=== PATIENT | male | born 1935 | race Caucasian/White ===

== ENCOUNTER 2017-05-23 09:02 | Emergency (ER) | payer MEDICARE ==
[2017-05-23 09:14] VITALS: BP 151/49
[2017-05-23 09:32] LABS: Urine Bilirubin 1 mg/dl (NEGATIVE); Urine Blood 250 /ul (NEGATIVE); Urine Ketone 15 mg/dL (NEGATIVE); Urine Protein 100 mg/dL (NEGATIVE); Urine Specific Gravity >=1.030 SP.GR. (1.005-1.030); Urine Urobilinogen Normal (NORMAL); Urine pH 5.5 pH (5.0-7.0)
[2017-05-23 09:34] LABS: Urine Appearance Slightly Cloudy; Urine Color Yellow; Urine Nitrite Positive (NEGATIVE)
[2017-05-23 09:52] LABS: Hematocrit 36.4 % (42.0-52.0); Hemoglobin 12.1 gm/dL (13.5-18.0); Mean Cell Volume 90.3 fl (78-100); Mean Corpuscular Hgb Conc 33.2 g/dl (32-36); Mean Platelet Volume 10.4 fl (6.0-9.5); Neutrophil # 6.7 K/mm3 (1.3-6.0); Neutrophil % 72.9 % (42-75.0); Platelet Count 149 K/mm3 (150-450); Red Blood Count 4.03 M/mm3 (4.7-6.0); Red Cell Distribution Width 12.4 % (11.5-14.0); White Blood Count 9.2 K/mm3 (4.0-10.5)
[2017-05-23 10:08] LABS: Albumin * 3.6 gm/dl (3.4-5.0); Anion Gap 15.7 mmol/L (6.8-13.8); BUN/Creatinine Ratio 17.4 (9.0-21.6); Bilirubin, Total 0.8 mg/dL (0.0-1.1); Ca. Corrected For Albumin 8.6 mg/dL (8.4-10.2); Calcium * 8.6 mg/dL (7.9-10.9); Carbon Dioxide 25.8 mmol/L (24-32.6); Potassium 4.5 mmol/L (3.4-4.6); Total Protein 6.8 gm/dL (6.2-8.2)
--- NOTE | 2017-05-23 10:17 | ERNOTE ---
ER Male HPI Stated Complaint: UTI Source: patient Exam Limitations: no limitations Immunizations: IMMUNIZATION HX Immunizations Up to Date Yes History of Influenza Vaccine Yes Hx Pneumococcal Vaccination Yes Allergies/Adverse Reactions: Allergies No Known Allergies Allergy (Verified 05/23/17 09:13) Home Medications: HOME MEDICATIONS Aspirin [Aspirin EC] 81 mg PO DAILY 09/30/15 [Last Taken Unknown] Carbidopa/Levodopa [Carbidopa-Levo 25-100 mg Odt] 2 tab PO QID 09/30/15 [Last Taken Unknown] Levothyroxine Sodium [Synthroid] 50 mcg PO DAILY 09/30/15 [Last Taken Unknown] Lisinopril [Zestril] 20 mg PO DAILY 09/30/15 [Last Taken Unknown] Oxybutynin Chloride [Ditropan Xl] 5 mg PO TID PRN 09/30/15 [Last Taken Unknown] Simvastatin [Zocor] 40 mg PO HS 09/30/15 [Last Taken Unknown] Ubidecarenone [Coq10] 100 mg PO DAILY 09/30/15 [Last Taken Unknown] glipiZIDE [Glipizide] 20 mg PO BIDWM 09/30/15 [Last Taken Unknown] metFORMIN HCL [Glucophage] 1,500 mg PO DAILY 09/30/15 [Last Taken Unknown] Centrum Silver Tablet 04/18/17 [Last Taken Unknown] Docusate Sodium 100 mg PO BID 04/18/17 [Last Taken Unknown] Latanoprost 04/18/17 [Last Taken Unknown] Omeprazole [Prilosec] 20 mg PO DAILY 04/18/17 [Last Taken Unknown] Sertraline HCl 25 mg PO DAILY 04/18/17 [Last Taken Unknown] Acetaminophen [Tylenol] 650 mg PO Q6H PRN #60 tablet 04/22/17 [Last Taken Unknown] Beta-Carotene(A) W-C , E/Min [Ocuvite] 1 tab PO DAILY #30 tablet 04/22/17 [Last Taken Unknown] Ciprofloxacin HCl [Cipro] 500 mg PO BID #20 tab 04/22/17 [Last Taken Unknown] Metoprolol Tartrate [Lopressor] 25 mg PO BID #30 tablet 04/22/17 [Last Taken Unknown] rOPINIRole HCL [Requip] 0.25 mg PO DAILY #30 tablet 04/22/17 [Last Taken Unknown ] Cephalexin [Keflex] 500 mg PO QID #28 capsule 05/23/17 [Last Taken Unknown] - History of Present Illness Narrative: This is an 81-year-old male with an indwelling suprapubic catheter who has been acting slightly confused. Patient is a resident of [facility] he is brought in by his daughter and the daughter states "this is how he acts when he gets a urinary tract infection" daughter denies any fevers or chills patient denies any abdominal pain or dysuria. Review of Systems - Review of Systems Constitutional: Present: no symptoms reported EYE: Present: no symptoms reported ENT: Present: no symptoms reported Respiratory: Present: no symptoms reported Cardiology: Present: no symptoms reported Gastrointestinal/Abdominal: Present: no symptoms reported Psych: Present: other - slight confusion which has manifested only today. - Patient's Past Medical History Patient History - Medical: Diabetes Type 2, Depression, Hypothyroidism, Other Patient History - Cardiac/Respiratory: Atrial Fibrillation, Coronary Heart Disease, Hypertension, Hyperlipidemia Patient History - Cancer: No Hx of Cancer Patient History - Surgical Procedures: Cataracts, Colonoscopy, Other Patient History - Other: None - Family History Mother Family History - Medical: , Other Family History - Cardiac/Respiratory: No pertinent hx Family History - Cancer: No pertinent family hx Father Family History - Medical: , No pertinent hx - Social History Living Situations: home Abuse History: No History of abuse Psych History: No pertinent hx Does anyone smoke in the home?: No Smoking Status: Never smoker Alcohol Use: none Drug Use: none - Immunizations Immunizations Up to Date: Yes Hx Pneumococcal Vaccination: Yes History of Influenza Vaccine: Yes Physical Exam - Physical Exam General Appearance: Present: wd/wn, alert, no apparent distress Head Exam: Present: normal inspection, no evidence of injury Eye Exam: Normal inspection: bilateral, PERRL: bilateral, EOMI: bilateral Neck: Present: normal inspection Respiratory: Present: no respiratory distress, normal breath sounds, no accessory muscle use, chest nontender, lungs clear Cardiovascular/Chest: Present: regular rate, rhythm, no murmur, normal peripheral pulses Gastrointestinal/Abdominal: Present: normal bowel sounds ED Progress - Results and Orders Patient's Lab Results:: I have reviewed the patient's lab results. - Vital Signs Patient's Vital Signs:: I have reviewed the patient's vital signs. Vital Signs: Vital Signs 08/07/17 09:05 Temperature 36.9 C Pulse Rate 60 Respiratory 15 Rate Blood Pressure 151/49 O2 Sat by Pulse 98 Oximetry - Progress/Reassessment Chief Complaint: Urinary Tract Problems Plan - Plan Plan: Patient's white count is not elevated, he is afebrile at this time, his urine has nitrites and this patient has a urinary tract infection for which she will receive cephalexin. Departure Clinical Impression: Urinary tract infection Qualifiers: Urinary tract infection type: site unspecified Hematuria presence: with hematuria Qualified Code(s): N39.0 - Urinary tract infection, site not specified ; R31.9 - Hematuria, unspecified - Departure Disposition: Home self-care Condition: Good Instructions: Urinary Tract Infection, Adult, [id number] Referrals: Delaney Robledo MD [Primary Care Provider] - Prescriptions: Cephalexin [Keflex] 500 mg PO QID #28 capsule
== END 2017-05-23 10:33 | disposition home or self-care (01) ==
LOC: ER 09:02
DX: N39.0 Urinary tract infection, site not specified (principal); R31.9 Hematuria, unspecified

== ENCOUNTER 2017-06-09 17:46 | Observation (INO) | payer MEDICARE ==
[2017-06-09] MEDS ORDERED: ACETAMINOPHEN 325 MG TABLET ONE (18:56)
[2017-06-09 18:58] LABS: Urine Bilirubin Negative (NEGATIVE); Urine Ketone Negative (NEGATIVE); Urine Nitrite Negative (NEGATIVE); Urine Protein Negative (NEGATIVE); Urine Specific Gravity <=1.005 SP.GR. (1.005-1.030); Urine Urobilinogen Normal (NORMAL)
[2017-06-09 19:05] LABS: Hematocrit 34.4 % (42.0-52.0); Hemoglobin 11.7 gm/dL (13.5-18.0); Mean Cell Volume 89.6 fl (78-100); Mean Corpuscular Hemoglobin 30.5 pg (27-31); Mean Platelet Volume 10.1 fl (6.0-9.5); Neutrophil # 5.7 K/mm3 (1.3-6.0); Neutrophil % 60.6 % (42-75.0); Platelet Count 179 K/mm3 (150-450); Red Blood Count 3.84 M/mm3 (4.7-6.0); Red Cell Distribution Width 12.7 % (11.5-14.0); White Blood Count 9.4 K/mm3 (4.0-10.5)
[2017-06-09 19:09] LABS: Urine Appearance Slightly Cloudy; Urine Bacteria 1+; Urine Blood 5 /ul (NEGATIVE); Urine Color Yellow; Urine RBC TRACE /hpf (0-5)
[2017-06-09 19:19] LABS: Albumin * 3.8 gm/dl (3.4-5.0); Anion Gap 17.3 mmol/L (6.8-13.8); BUN/Creatinine Ratio 19.1 (9.0-21.6); Bilirubin, Total 0.4 mg/dL (0.0-1.1); Ca. Corrected For Albumin 8.9 mg/dL (8.4-10.2); Calcium * 9.1 mg/dL (7.9-10.9); Carbon Dioxide 24.8 mmol/L (24-32.6); Potassium 5.1 mmol/L (3.4-4.6); Total Protein 6.9 gm/dL (6.2-8.2)
[2017-06-09] MEDS ORDERED: NORMAL SALINE 1,000 ML IV ONE (19:25)
[2017-06-09] MEDS ORDERED: LEVOFLOXACIN/D5W 500 MG/100 ML BAG IV SCH (19:30)
--- NOTE | 2017-06-09 19:35 | ERNOTE ---
Neuro HPI ER Record Date of Service: 06/09/17 Presenting Symptoms: confusion Time Seen by Provider: 06/09/17 18:40 Source: patient, family Exam Limitations: no limitations Immunizations: IMMUNIZATION HX Immunizations Up to Date Yes History of Influenza Vaccine Yes Hx Pneumococcal Vaccination Yes Allergies/Adverse Reactions: Allergies Allergy/AdvReac Type Severity Reaction Status Date / Time No Known Allergies Allergy Verified 06/09/17 18:25 Home Medications: HOME MEDICATIONS Aspirin [Aspirin EC] 81 mg PO DAILY 09/30/15 [Last Taken Unknown] Carbidopa/Levodopa [Carbidopa-Levo 25-100 mg Odt] 2 tab PO QID 09/30/15 [Last Taken Unknown] Levothyroxine Sodium [Synthroid] 50 mcg PO DAILY 09/30/15 [Last Taken Unknown] Lisinopril [Zestril] 20 mg PO DAILY 09/30/15 [Last Taken Unknown] Oxybutynin Chloride [Ditropan Xl] 5 mg PO TID PRN 09/30/15 [Last Taken Unknown] Simvastatin [Zocor] 40 mg PO HS 09/30/15 [Last Taken Unknown] Ubidecarenone [Coq10] 100 mg PO DAILY 09/30/15 [Last Taken Unknown] glipiZIDE [Glipizide] 20 mg PO BIDWM 09/30/15 [Last Taken Unknown] metFORMIN HCL [Glucophage] 1,500 mg PO DAILY 09/30/15 [Last Taken Unknown] Centrum Silver Tablet 04/18/17 [Last Taken Unknown] Docusate Sodium 100 mg PO BID 04/18/17 [Last Taken Unknown] Latanoprost 04/18/17 [Last Taken Unknown] Omeprazole [Prilosec] 20 mg PO DAILY 04/18/17 [Last Taken Unknown] Sertraline HCl 25 mg PO DAILY 04/18/17 [Last Taken Unknown] Acetaminophen [Tylenol] 650 mg PO Q6H PRN #60 tablet 04/22/17 [Last Taken Unknown] Beta-Carotene(A) W-C , E/Min [Ocuvite] 1 tab PO DAILY #30 tablet 04/22/17 [Last Taken Unknown] Ciprofloxacin HCl [Cipro] 500 mg PO BID #20 tab 04/22/17 [Last Taken Unknown] Metoprolol Tartrate [Lopressor] 25 mg PO BID #30 tablet 04/22/17 [Last Taken Unknown] rOPINIRole HCL [Requip] 0.25 mg PO DAILY #30 tablet 04/22/17 [Last Taken Unknown ] Cephalexin [Keflex] 500 mg PO QID #28 capsule 05/23/17 [Last Taken Unknown] - History of Present Illness Narrative: Patient presents to the ED for confusion. Family brings him in because he was confused and not himself. The last time he had this he had sepsis from UTI. He has indwelling suprapubic. Family noticed dark urine today. no CP or SOB. No cough. he denies abdominal pain. No clear fever. He denies focal weakness. no falls or trauma. having some increased difficulty walking and decreased orals. Onset: gradual onset Severity: mild - Character of Deficits Associated Symptoms: Reports: confused. Denies: fever/chills, chest pain, neck/ back pain, headache, unresponsive Prior Treament: Denies: recently seen Review of Systems - Review of Systems Constitutional: Absent: fever Respiratory: Absent: shortness of breath Cardiology: Absent: chest pain Gastrointestinal/Abdominal: Absent: abdominal pain Genitourinary: Present: See HPI Musculoskeletal: Absent: back pain Skin: Absent: rash Neurological: Present: See HPI All Other Systems: All systems neg except as marked - Patient's Past Medical History Patient History - Medical: Diabetes Type 2, Depression, Hypothyroidism, Other Patient History - Cardiac/Respiratory: Atrial Fibrillation, Coronary Heart Disease, Hypertension, Hyperlipidemia Patient History - Cancer: No Hx of Cancer Patient History - Surgical Procedures: Cataracts, Colonoscopy, Other Patient History - Other: None - Family History Mother Family History - Medical: , Other Family History - Cardiac/Respiratory: No pertinent hx Family History - Cancer: No pertinent family hx Father Family History - Medical: , No pertinent hx - Social History Living Situations: assisted living Abuse History: No History of abuse Psych History: No pertinent hx Does anyone smoke in the home?: No Smoking Status: Former smoker Have you smoked in the past 12 months: No Do you dip or chew tobacco: No Alcohol Use: none Drug Use: none - Immunizations Immunizations Up to Date: Yes Hx Pneumococcal Vaccination: Yes History of Influenza Vaccine: Yes Physical Exam - Physical Exam General Appearance: Present: alert, no apparent distress Head Exam: Present: normal inspection, no evidence of injury Eye Exam: Normal inspection: bilateral, PERRL: bilateral Ears, Nose, Throat: Present: normal pharynx, other - decreased MM moisture Neck: Present: normal inspection Respiratory: Present: no respiratory distress, no accessory muscle use, lungs clear Cardiovascular/Chest: Present: regular rate, rhythm, normal peripheral pulses Gastrointestinal/Abdominal: Present: normal bowel sounds, nontender, soft, other - no infection noted at suprapubic site Back Exam: Absent: CVA tenderness (R), CVA tenderness (L) Extremity Exam: Present: normal inspection, no edema Neurological Exam: Present: alert, no motor/sensory deficits Skin Exam: Present: normal color, warm/dry ED Progress - Results and Orders Patient's Lab Results:: I have reviewed the patient's lab results. - Vital Signs Patient's Vital Signs:: I have reviewed the patient's vital signs. Vital Signs: Vital Signs 06/09/17 18:18 Temperature 37.1 C Pulse Rate 56 L Respiratory 15 Rate Blood Pressure 99/69 O2 Sat by Pulse 100 Oximetry - Progress/Reassessment Chief Complaint: Altered Mental Status Progress Note-Subjective: 06/09/17 19:34 Patient has borderline BP with Hx of sepsis and UTI noted. Normal WBC but elevated Lactic acid. Will admit obs. D/W Britney (hospitalist) who will admit Departure Clinical Impression: UTI (urinary tract infection), Confusion, Elevated lactic acid level - Departure Disposition: [facility] Condition: Stable Referrals: Delaney Robledo MD [Primary Care Provider] -
[2017-06-09] MEDS: NORMAL SALINE 1,000 ML IV PRN (21:00)
--- NOTE | 2017-06-09 21:08 | HP ---
Chief Complaint - Chief Complaint Date of Service: 06/09/17 Time of Service: 21:04 Chief Complaint: " Confusion, dizziness". Source of HPI- Pt; reliable, ER provider report, pt's EMR. History of Present Illness: Mr. Nielsen is a 81-yr-old WM pt of Dr. Delaney Robledo with a PMH of:A-fib, BPH , CAD, DMII, HLD, HTN, Parkinsonism and Restless Leg Syndrome. Pt states that he had struggled with urinary incontinency for a while and finally saw Urology specialist at the [facility] who recommended a suprapubic catheter. The procedure was done sometime in March-April. He states that he has been treated for UTI at least twice since then. Today, his daughter got increasingly concerned about his behaviour and brought him to the [facility] ER. He acted confused, did not know where he was & 'that is how he has initially presents prior to a UTI.' He states that he was also felt dizzy. He denies fever and chills. He also denies n /v, diarrhea, Abdominal pain, coughing & SOB. At the ED, the lab-work was unremarkable except for an elevated lactic acid of 3.8 and the UA showed UTI presence. V.S were stable. He will be admitted under observation status for IVF hydration, IV antibiotics and to trend the Lactic acid - Patient's Past Medical History Patient History - Medical: Diabetes Type 2, Depression, Hypothyroidism, Other - Parkinsonism. Patient History - Cardiac/Respiratory: Atrial Fibrillation, Coronary Heart Disease, Hypertension, Hyperlipidemia Patient History - Cancer: No Hx of Cancer Patient History - Surgical Procedures: Cataracts, Colonoscopy, Other Patient History - Other: None - Family History Mother Family History - Medical: , Other Family History - Cardiac/Respiratory: No pertinent hx Family History - Cancer: No pertinent family hx Father Family History - Medical: , No pertinent hx - Social History Living Situations: assisted living Abuse History: No History of abuse Psych History: No pertinent hx Does anyone smoke in the home?: No Smoking Status: Former smoker Have you smoked in the past 12 months: No Do you dip or chew tobacco: No Patient requests Smoking Cessation Consult: No Alcohol Use: none Drug Use: none - Immunizations Immunizations Up to Date: Yes Hx Pneumococcal Vaccination: Yes History of Influenza Vaccine: Yes Review Of Systems (GEN) - Review of Systems Generalized/Overall Review: Absent: Weakness, Chills, Fever, Malaise, Fatigue EENTM: Absent: Eye Pain, Blurred Vision, Double Vision Respiratory: Absent: Cough, Shortness of Breath, Orthopnea Cardiac: Absent: Chest Pain, Edema, Palpitations Abdominal: Present: Diarrhea. Absent: Nausea, Vomiting, Hematemesis, Abdominal Pain, Constipation Genitourinary: Absent: Burning, Itching Musculoskeletal: Absent: Joint Pain, Back Pain, Joint Swelling Neurological: Present: Tremors. Absent: Headache, Anxiety, Depressed Skin: Absent: Dryness, Lesions Endocrine: Absent: Intolerance to Cold, Increased Hunger, Increased Thirst Misc: All systems neg except as marked Immunizations: IMMUNIZATION HX Immunizations Up to Date Yes History of Influenza Vaccine Yes Hx Pneumococcal Vaccination Yes Allergies/Adverse Reactions: Allergies Allergy/AdvReac Type Severity Reaction Status Date / Time No Known Allergies Allergy Verified 06/10/17 01:33 Home Medications: HOME MEDICATIONS Aspirin [Aspirin EC] 81 mg PO DAILY 09/30/15 [Last Taken Unknown] Carbidopa/Levodopa [Carbidopa-Levo 25-100 mg Odt] 2 tab PO QID 09/30/15 [Last Taken Unknown] Levothyroxine Sodium [Synthroid] 50 mcg PO DAILY 09/30/15 [Last Taken Unknown] Lisinopril [Zestril] 20 mg PO DAILY 09/30/15 [Last Taken Unknown] Oxybutynin Chloride [Ditropan Xl] 5 mg PO TID 09/30/15 [Last Taken Unknown] Simvastatin [Zocor] 40 mg PO HS 09/30/15 [Last Taken Unknown] Ubidecarenone [Coq10] 100 mg PO DAILY 09/30/15 [Last Taken Unknown] glipiZIDE [Glipizide] 20 mg PO BIDWM 09/30/15 [Last Taken Unknown] metFORMIN HCL [Glucophage] 1,250 mg PO BIDWM 09/30/15 [Last Taken Unknown] Docusate Sodium 100 mg PO BID 04/18/17 [Last Taken Unknown] Omeprazole [Prilosec] 20 mg PO DAILY 04/18/17 [Last Taken Unknown] Sertraline HCl 25 mg PO DAILY 04/18/17 [Last Taken Unknown] Acetaminophen [Tylenol] 650 mg PO Q6H PRN #60 tablet 04/22/17 [Last Taken Unknown] Beta-Carotene(A) W-C , E/Min [Ocuvite] 1 tab PO DAILY #30 tablet 04/22/17 [Last Taken Unknown] Metoprolol Tartrate [Lopressor] 25 mg PO BID #30 tablet 04/22/17 [Last Taken Unknown] Beta-Carotene [Beta Carotene] 10,000 unit PO DAILY 06/09/17 [Last Taken Unknown] Bimatoprost [Lumigan 0.01% Ophthalmic Solution] 1 drop EACHEYE HS 06/09/17 [ Last Taken Unknown] Calcium Carbonate [Tums] 500 mg PO TID PRN 06/09/17 [Last Taken Unknown] Clotrimazole/Betamethasone Dip [Clotrimazole-Betamethasone Crm] 15 gm TP BID [Last Taken Unknown] rOPINIRole HCL [Requip] 0.5 mg PO TID 06/09/17 [Last Taken Unknown] Exam - Exam Vital Signs: Vital Signs - Last Taken Temp 37.3 C 06/09/17 20:26 Pulse 57 L 06/09/17 20:26 Resp 16 06/09/17 20:26 BP 155/68 06/09/17 20:26 Pulse Ox 99 06/09/17 20:26 Constitutional: Present: Alert, Oriented x3, Cooperative, No distress ENT Exam: Present: normal ENT inspection, hearing grossly normal Eye Exam: bilateral eye: normal inspection, PERRL Neck: Present: non-tender, full range of motion, supple Back Exam: Present: normal inspection, no CVA tenderness Breasts: Present: Exam deferred Respiratory: Present: lungs clear Cardiovascular/Chest: Present: normal peripheral pulses, regular rate, rhythm, no chest tenderness, no edema, no murmur Abdomen: Present: Normal bowel sounds, soft, nontender /Rectal: Present: Other - Suprapubic catheter Extremity: Present: normal range of motion, non-tender, normal inspection, no pedal edema Skin Exam: Present: warm/dry, no cyanosis Lymphatic: Present: no adenopathy Neurologic: Present: no motor/sensory deficits, alert, oriented x 3 Appearance: Present: appropriate appearance, appropriate insight Eye contact: Present: cooperative, good eye contact, decreased rate of speech Thoughts: Present: normal thought pattern, no apparent hallucination Diagnostic Studies: Laboratory Results WBC 9.4 K/mm3 (4.0-10.5) 06/09/17 19:05 RBC 3.84 M/mm3 (4.7-6.0) L 06/09/17 19:05 Hgb 11.7 gm/dL (13.5-18.0) L 06/09/17 19:05 Hct 34.4 % (42.0-52.0) L 06/09/17 19:05 MCV 89.6 fl (78-100) 06/09/17 19:05 MCH 30.5 pg (27-31) 06/09/17 19:05 MCHC 34.0 g/dl (32-36) 06/09/17 19:05 RDW 12.7 % (11.5-14.0) 06/09/17 19:05 Plt Count 179 K/mm3 (150-450) 06/09/17 19:05 MPV 10.1 fl (6.0-9.5) H 06/09/17 19:05 Immature Gran % (Auto) 1.00 % (0.001-0.429) H 06/09/17 19:05 Immature Gran # (Auto) 0.09 K/mm3 (0.000-0.0310) H 06/09/17 19:05 Neutrophils % 60.6 % (42-75.0) 06/09/17 19:05 Lymphocytes % 24.9 % (20-51) 06/09/17 19:05 Monocytes % 8.4 % (0.0-9) 06/09/17 19:05 Eosinophils % 4.4 % (0.0-3.0) H 06/09/17 19:05 Basophils % 0.7 % (0.0-1.0) 06/09/17 19:05 Nucleated RBC % 0.0 k/mm3 (0-1) 06/09/17 19:05 Neutrophils # 5.7 K/mm3 (1.3-6.0) 06/09/17 19:05 Lymphocytes # 2.3 k/mm3 (1.5-3.5) 06/09/17 19:05 Monocytes # 0.8 k/mm3 (0.0-1.0) 06/09/17 19:05 Eosinophils # 0.4 k/mm3 (0.0-0.7) 06/09/17 19:05 Absolute Basophils 0.1 k/mm3 (0.0-0.1) 06/09/17 19:05 Sodium 136 mmol/L (132-142) 06/09/17 19:05 Plasma Sodium 137 mmol/L (130-142) 06/09/17 19:05 Potassium 5.1 mmol/L (3.4-4.6) H 06/09/17 19:05 Chloride 99 mmol/L (97-106) 06/09/17 19:05 Carbon Dioxide 24.8 mmol/L (24-32.6) 06/09/17 19:05 Anion Gap 17.3 mmol/L (6.8-13.8) H 06/09/17 19:05 BUN 21 mg/dL (6-23) 06/09/17 19:05 Creatinine 1.10 mg/dL (0.4-1.4) 06/09/17 19:05 Est GFR (Non-Af Amer) 68 mL/min (60-130) 06/09/17 19:05 BUN/Creatinine Ratio 19.1 (9.0-21.6) 06/09/17 19:05 Random Glucose 188 mg/dL (70-110) H 06/09/17 19:05 Lactic Acid, Venous 3.8 mmol/L (0.4-1.9) H* 06/09/17 19:05 Calcium 9.1 mg/dL (7.9-10.9) 06/09/17 19:05 Calcium Adj for Albumin 8.9 mg/dL (8.4-10.2) 06/09/17 19:05 Total Bilirubin 0.4 mg/dL (0.0-1.1) 06/09/17 19:05 AST 13 U/L (0-48) 06/09/17 19:05 ALT 18 U/L (19-67) L 06/09/17 19:05 Alkaline Phosphatase 61 U/L (50-170) 06/09/17 19:05 Total Protein 6.9 gm/dL (6.2-8.2) 06/09/17 19:05 Albumin 3.8 gm/dl (3.4-5.0) 06/09/17 19:05 Urine Color Yellow 06/09/17 18:42 Urine Appearance Slightly cloudy 06/09/17 18:42 Urine pH 6.0 pH (5.0-7.0) 06/09/17 18:42 Ur Specific Wharton <=1.005 SP.GR. (1.005-1.030) 06/09/17 18:42 Urine Protein Negative mg/dL (NEGATIVE) 06/09/17 18:42 Urine Glucose (UA) Negative mg/dL (NEGATIVE) 06/09/17 18:42 Urine Ketones Negative mg/dL (NEGATIVE) 06/09/17 18:42 Urine Blood 5 /ul (NEGATIVE) H 06/09/17 18:42 Urine Nitrate Negative (NEGATIVE) 06/09/17 18:42 Urine Bilirubin Negative mg/dl (NEGATIVE) 06/09/17 18:42 Urine Urobilinogen Normal EU/dl (NORMAL) 06/09/17 18:42 Ur Leukocyte Esterase 100 /ul (NEGATIVE) H 06/09/17 18:42 Urine RBC Trace /hpf (0-5) 06/09/17 18:42 Urine WBC 5-10 /hpf (0-5) H 06/09/17 18:42 Ur Epithelial Cells None seen /hpf (0-5) 06/09/17 18:42 Urine Bacteria 1+ (NONE) H 06/09/17 18:42 Urine Culture Comments Culture to follow 06/09/17 18:42 Assessment/Plan - Assessment/Plan (1) Lactic acidosis Assessment: Mr. Davey presented to the ED with C/C of dizziness and confusion. His chemistries and hematology labwork was unremarkable except for an elevated Lactic acid of 3.8. He denied having fevers or chills. He also denied abdominal pain and diarrhea. V.S were stable. He is not ill- appearing. Even though he had a lactic acid of 3.8, I do not suspect tissue hypoxia from Sepsis, but rather Type B lactic acidodis which can be caused by drugs such as Metformin, which he is on this medication for his DM II. There is no need to hold the medication as the pt shows no signs of tissue hypoxia. Anticipate discharge tomorrow. Problem: Acute (2) Dehydration Assessment: Noted with dizziness, confusion and family reported to the ERP about pt's poor oral intake and weakness. Will provide IVF hydration. BMP in am. Problem: Acute (3) UTI (urinary tract infection) Assessment: The UA was positive for UTI with below results. Previous Suprapubic Urine culture on 05/23/17 grew Citrobacter Freundii which is sensitive to Bactrim. He received Levaquin at the ED. Will plan to discharge him to Bactrim and will switch antibiotics once urine culture results from this admission. Laboratory Tests 06/09/17 18:42 Ur Leukocyte Esterase 100 H Urine WBC 5-10 H Urine Bacteria 1+ H Problem: Acute (4) Diabetes Problem: Chronic Qualifiers: Diabetes mellitus type: type 2 (5) HLD (hyperlipidemia) Problem: Chronic Qualifiers: Hyperlipidemia type: mixed hyperlipidemia Qualified Code(s): E78.2 - Mixed hyperlipidemia (6) HTN (hypertension) Problem: Chronic Qualifiers: Hypertension type: essential hypertension Qualified Code(s): I10 - Essential (primary) hypertension
[2017-06-09] MEDS ORDERED: CALCIUM CARBONATE 500 MG TAB.CHEW PO PRN (21:42)
[2017-06-09] MEDS ORDERED: ACETAMINOPHEN 325 MG TABLET PO PRN (21:42)
[2017-06-09] MEDS: CLOTRIMAZOLE/BETAMET DIPROP 15 APPL TUBE TP SCH (22:50)
[2017-06-09] MEDS: METOPROLOL TARTRATE 25 MG TABLET PO SCH (22:50)
[2017-06-09] MEDS: CARBIDOPA/LEVODOPA 25/100 1 TAB TABLET PO SCH (22:50)
[2017-06-09] MEDS: DOCUSATE SODIUM 100 MG CAPSULE PO SCH (22:51)
[2017-06-10 04:36] LABS: Hematocrit 32.2 % (42.0-52.0); Hemoglobin 10.9 gm/dL (13.5-18.0); Mean Corpuscular Hemoglobin 30.1 pg (27-31); Mean Corpuscular Hgb Conc 33.9 g/dl (32-36); Mean Platelet Volume 10.1 fl (6.0-9.5); Neutrophil # 5.7 K/mm3 (1.3-6.0); Platelet Count 157 K/mm3 (150-450); Red Blood Count 3.62 M/mm3 (4.7-6.0); Red Cell Distribution Width 12.5 % (11.5-14.0); White Blood Count 8.9 K/mm3 (4.0-10.5)
[2017-06-10 04:52] LABS: Anion Gap 14.1 mmol/L (6.8-13.8); BUN/Creatinine Ratio 20.5 (9.0-21.6); Calcium * 8.3 mg/dL (7.9-10.9); Carbon Dioxide 25.2 mmol/L (24-32.6); Estimated Creat Clear 73.3; Potassium 4.3 mmol/L (3.4-4.6)
[2017-06-10] MEDS: NORMAL SALINE 1,000 ML IV PRN (04:59)
[2017-06-10] MEDS ORDERED: LEVOTHYROXINE SODIUM 50 MCG TABLET PO SCH (07:00)
[2017-06-10] MEDS ORDERED: PANTOPRAZOLE SODIUM 20 MG TABLET.DR PO SCH (07:00)
[2017-06-10] MEDS ORDERED: OMEPRAZOLE 20 MG CAPSULE.SA PO SCH (07:00)
--- NOTE | 2017-06-10 08:12 | PN ---
Progess Note - Interim Narrative: 06/10/17 08:10 The patient pulled out his IV and said he is not sick. Refuses reinsertion. UA shows Gram Neg bacilli. Will d/c metformin. Will do LA . if WNL will discharge on oral antbiotics.
[2017-06-10] MEDS ORDERED: metFORMIN HCL 500 MG TABLET PO SCH ×2 (09:00)
[2017-06-10] MEDS ORDERED: LISINOPRIL 10 MG TABLET PO SCH (09:00)
[2017-06-10] MEDS ORDERED: SERTRALINE HCL 50 MG TABLET PO SCH (09:00)
[2017-06-10] MEDS ORDERED: glipiZIDE 10 MG TABLET PO SCH (09:00)
[2017-06-10] MEDS ORDERED: BETA-CAROTENE(A) W-C , E/MIN 1 TAB TABLET PO SCH ×2 (09:00)
[2017-06-10] MEDS ORDERED: COQ10 100 MG PO SCH (09:00)
[2017-06-10] MEDS ORDERED: ASPIRIN 81 MG TABLET.DR PO SCH (09:00)
[2017-06-10] MEDS ORDERED: LISINOPRIL 20 MG TABLET PO SCH (09:00)
[2017-06-10] MEDS ORDERED: NORMAL SALINE 1,000 ML IV PRN (09:05)
[2017-06-10] MEDS: OXYBUTYNIN CHLORIDE 5 MG TABLET PO SCH ×2 (09:14→12:17)
[2017-06-10] MEDS: DOCUSATE SODIUM 100 MG CAPSULE PO SCH (09:14)
[2017-06-10] MEDS: METOPROLOL TARTRATE 25 MG TABLET PO SCH (09:14)
[2017-06-10] MEDS: rOPINIRole HCL 0.5 MG TABLET PO SCH ×2 (09:15→12:17)
[2017-06-10] MEDS: CARBIDOPA/LEVODOPA 25/100 1 TAB TABLET PO SCH ×2 (09:15→12:17)
[2017-06-10] MEDS ORDERED: LEVOFLOXACIN/D5W 750 MG/150 ML BAG IV ONE (09:15)
[2017-06-10] MEDS: CLOTRIMAZOLE/BETAMET DIPROP 15 APPL TUBE TP SCH (09:15)
[2017-06-10 11:02] VITALS: BP 110/60
--- NOTE | 2017-06-10 12:27 | DS ---
(1) UTI (urinary tract infection) Diagnosis(s): Gram negative bacilli. Problem: Acute (2) Confusion Problem: Resolved (3) Dehydration Problem: Resolved (4) Elevated lactic acid level Problem: Resolved (5) HTN (hypertension) Problem: Chronic Qualifiers: Hypertension type: essential hypertension Qualified Code(s): I10 - Essential (primary) hypertension (6) Parkinsonism Problem: Chronic Qualifiers: Parkinsonism type: Parkinson's disease Qualified Code(s): G20 - Parkinson' s disease (7) Urinary incontinence Diagnosis(s): s/p SBT Problem: Acute Description of Stay: Kaushal Nielsen is a 81-yr-old WM, with a PMH of:A-fib, BPH, CAD, DMII, HLD, HTN, Parkinsonism and Restless Leg Syndrome who was admitted on 06/09/2017. . Pt stated that he had struggled with urinary incontinency for a while and finally saw Urology specialist at the [facility] who recommended a suprapubic catheter. The procedure was done sometime in March-April. He states that he has been treated for UTI at least twice since then. On the day of admission, his daughter got increasingly concerned about his behaviour and brought him to the [facility] ER. He acted confused, did not know where he was & 'that is how he has initially presents prior to a UTI.' He states that he was also felt dizzy. He denied fever and chills. He also denied n/v, diarrhea, Abdominal pain, coughing & SOB. At the ED, the lab-work was unremarkable except for an elevated lactic acid of 3.8 and the UA showed UTI presence. V.S were stable. He was admitted under observation status for IVF hydration, IV antibiotics and to trend the Lactic acid . Hios Lacic acid normalized. Metformin was put on hold. He got 2 doses of levaquin per sensitivity of his last C & S. His present one is showing Gram negative bacilli. We will change antibiotic when culture comes back. He is stable now to be discharged. He is AAO x3. Procedures Performed: none Discharge Disposition: Home self care Disposition: Home self-care Condition: Stable Discharge Activity: Activity as tolerated Discharge Diet: Low salt Referrals: Delaney Robledo MD [Primary Care Provider] - Additional Patient Instructions (free text): Resume [facility] for physical therapy. Please fax orders and call report upon discharge. Follow up with PCP in 1 week. Prescriptions (Any new or edited meds): Levofloxacin [Levaquin] 500 mg PO DAILY 7 Days #10 tab Complete Home Medications List: Complete Home Medication List: Aspirin [Aspirin EC] 81 mg PO DAILY 09/30/15 Carbidopa/Levodopa [Carbidopa-Levo 25-100 mg Odt] 2 tab PO QID 09/30/15 Levothyroxine Sodium [Synthroid] 50 mcg PO DAILY 09/30/15 Lisinopril [Zestril] 20 mg PO DAILY 09/30/15 Simvastatin [Zocor] 40 mg PO HS 09/30/15 Ubidecarenone [Coq10] 100 mg PO DAILY 09/30/15 glipiZIDE [Glipizide] 20 mg PO BIDWM 09/30/15 metFORMIN HCL [Glucophage] 1,250 mg PO BIDWM 09/30/15 Docusate Sodium 100 mg PO BID 04/18/17 Omeprazole [Prilosec] 20 mg PO DAILY 04/18/17 Sertraline HCl 25 mg PO DAILY 04/18/17 Acetaminophen [Tylenol] 650 mg PO Q6H PRN #60 tablet 04/22/17 Beta-Carotene(A) W-C , E/Min [Ocuvite] 1 tab PO DAILY #30 tablet 04/22/17 Metoprolol Tartrate [Lopressor] 25 mg PO BID #30 tablet 04/22/17 Beta-Carotene [Beta Carotene] 10,000 unit PO DAILY 06/09/17 Bimatoprost [Lumigan 0.01% Ophthalmic Solution] 1 drop EACHEYE HS 06/09/17 Calcium Carbonate [Tums] 500 mg PO TID PRN 06/09/17 Clotrimazole/Betamethasone Dip [Clotrimazole-Betamethasone Crm] 15 gm TP BID rOPINIRole HCL [Requip] 0.5 mg PO TID 06/09/17 Levofloxacin [Levaquin] 500 mg PO DAILY 7 Days #10 tab 06/10/17 Oxybutynin Chloride [Ditropan] 5 mg PO TID 06/10/17
[2017-06-10] MEDS ORDERED: BIMATOPROST 25 DROP BTL EACHEYE SCH (21:00)
[2017-06-10] MEDS ORDERED: SIMVASTATIN 40 MG TABLET PO SCH (21:00)
== END 2017-06-10 14:05 | disposition home health service (06) ==
LOC: ER 17:46 → MS 19:33
PROVIDERS: ADMIT Nurse Practitioner; ATTEND Internal Medicine
DX: N39.0 Urinary tract infection, site not specified (principal); B96.89 Other specified bacterial agents as the cause of diseases classified elsewhere; E86.0 Dehydration; R41.0 Disorientation, unspecified; R74.0 Nonspecific elevation of levels of transaminase and lactic acid dehydrogenase [LDH]; I10 Essential (primary) hypertension; G20 Parkinson's disease; R32 Unspecified urinary incontinence; Z87.891 Personal history of nicotine dependence; E11.9 Type 2 diabetes mellitus without complications; E03.9 Hypothyroidism, unspecified; I48.91 Unspecified atrial fibrillation; G25.81 Restless legs syndrome
CPT/HCPCS: 36415; 80048; 80053; 81001; 83605; 85025; 87040; 87077; 87081; 87086; 87186; 96361; 96365; 99283; G0378

== ENCOUNTER 2017-06-14 15:36 | Emergency (ER) | payer MEDICARE ==
--- NOTE | 2017-06-14 16:08 | ERNOTE ---
Trauma/Assault HPI - Narrative Date of Service: 06/14/17 - General Stated Complaint: FALL Time Seen by Provider: 06/14/17 15:47 Source: patient Exam Limitations: no limitations - Immun/Allergies/Home Medications Immunizations: IMMUNIZATION HX Immunizations Up to Date Yes History of Influenza Vaccine Yes Hx Pneumococcal Vaccination Yes Allergies/Adverse Reactions: Allergies No Known Allergies Allergy (Verified 06/14/17 15:44) Home Medications: HOME MEDICATIONS Aspirin [Aspirin EC] 81 mg PO DAILY 09/30/15 [Last Taken Unknown] Carbidopa/Levodopa [Carbidopa-Levo 25-100 mg Odt] 2 tab PO QID 09/30/15 [Last Taken Unknown] Levothyroxine Sodium [Synthroid] 50 mcg PO DAILY 09/30/15 [Last Taken Unknown] Lisinopril [Zestril] 20 mg PO DAILY 09/30/15 [Last Taken Unknown] Simvastatin [Zocor] 40 mg PO HS 09/30/15 [Last Taken Unknown] Ubidecarenone [Coq10] 100 mg PO DAILY 09/30/15 [Last Taken Unknown] glipiZIDE [Glipizide] 20 mg PO BIDWM 09/30/15 [Last Taken Unknown] metFORMIN HCL [Glucophage] 1,250 mg PO BIDWM 09/30/15 [Last Taken Unknown] Docusate Sodium 100 mg PO BID 04/18/17 [Last Taken Unknown] Omeprazole [Prilosec] 20 mg PO DAILY 04/18/17 [Last Taken Unknown] Sertraline HCl 25 mg PO DAILY 04/18/17 [Last Taken Unknown] Acetaminophen [Tylenol] 650 mg PO Q6H PRN #60 tablet 04/22/17 [Last Taken Unknown] Beta-Carotene(A) W-C , E/Min [Ocuvite] 1 tab PO DAILY #30 tablet 04/22/17 [Last Taken Unknown] Metoprolol Tartrate [Lopressor] 25 mg PO BID #30 tablet 04/22/17 [Last Taken Unknown] Beta-Carotene [Beta Carotene] 10,000 unit PO DAILY 06/09/17 [Last Taken Unknown] Bimatoprost [Lumigan 0.01% Ophthalmic Solution] 1 drop EACHEYE HS 06/09/17 [ Last Taken Unknown] Calcium Carbonate [Tums] 500 mg PO TID PRN 06/09/17 [Last Taken Unknown] Clotrimazole/Betamethasone Dip [Clotrimazole-Betamethasone Crm] 15 gm TP BID [Last Taken Unknown] rOPINIRole HCL [Requip] 0.5 mg PO TID 06/09/17 [Last Taken Unknown] Levofloxacin [Levaquin] 500 mg PO DAILY 7 Days #10 tab 06/10/17 [Last Taken Unknown] Oxybutynin Chloride [Ditropan] 5 mg PO TID 06/10/17 [Last Taken Unknown] - History of Present Illness Narrative: Pt. comes in with c/o headache and R shoulder and arm pain after he fell x 2 today. Pt. has a hx of parkinsons and states that twice today he bent over to diamond picker something off of the floor and lost his balance and fell forward, Once hitting his R arm and second hitting his R frontal head. Pt. states that initially he had neck pain but that has since resolved. Pt. was recently discharged from the hospital with dehydration and a UTI and is on abx at this time but denies any symptoms of this. Review of Systems - Review of Systems Constitutional: Present: no symptoms reported. Absent: recent illness, fever, chills, diaphoresis, weakness, malaise EYE: Present: no symptoms reported. Absent: eye pain, blurred vision, double vision, vision changes ENT: Present: no symptoms reported. Absent: ear pain, nose congestion, nasal drainage Respiratory: Present: no symptoms reported. Absent: shortness of breath, cough , wheezing Cardiology: Present: no symptoms reported Gastrointestinal/Abdominal: Present: no symptoms reported. Absent: nausea, vomiting Genitourinary: Present: no symptoms reported. Absent: pain, decreased urinary output Musculoskeletal: Present: muscle pain - R post shoulder statest aht this is similar to pain from arthritis in his shoulder. Absent: back pain Skin: Present: other - abrasion R forehead and R forearm All Other Systems: All systems neg except as marked - Patient's Past Medical History Patient History - Medical: Diabetes Type 2, Depression, Hypothyroidism, Other - parkinsons Patient History - Cardiac/Respiratory: Atrial Fibrillation, Coronary Heart Disease, Hypertension, Hyperlipidemia Patient History - Cancer: No Hx of Cancer Patient History - Surgical Procedures: Cataracts, Colonoscopy, Other Patient History - Other: None - Family History Mother Family History - Medical: , Other Family History - Cardiac/Respiratory: No pertinent hx Family History - Cancer: No pertinent family hx Father Family History - Medical: , No pertinent hx - Social History Living Situations: assisted living Abuse History: No History of abuse Psych History: No pertinent hx Does anyone smoke in the home?: No Smoking Status: Former smoker Alcohol Use: none Drug Use: none - Immunizations Immunizations Up to Date: Yes Hx Pneumococcal Vaccination: Yes History of Influenza Vaccine: Yes Physical Exam - Physical Exam General Appearance: Present: wd/wn, alert, no apparent distress Head Exam: Present: normal inspection, no evidence of injury Eye Exam: Normal inspection: bilateral, PERRL: bilateral, EOMI: bilateral Ears, Nose, Throat: Present: normal ENT inspection, normal pharynx Neck: Present: normal inspection, nontender. Absent: tender lateral, tender posterior midline Respiratory: Present: no respiratory distress, normal breath sounds, no accessory muscle use, chest nontender Cardiovascular/Chest: Present: regular rate, rhythm, no murmur, normal peripheral pulses Gastrointestinal/Abdominal: Present: normal bowel sounds, nontender, nondistended, soft, no organomegaly Back Exam: Present: normal inspection, normal range of motion, no CVA tenderness , no vertebral tenderness. Absent: muscle spasm Extremity Exam: Present: non-tender, normal range of motion, no edema, other - R forearm abrasion partial thickness open covered by foam dressing Neurological Exam: Present: alert, oriented, normal mood/affect, other - motor ataxia pt. states is normal for him Skin Exam: Present: normal color, warm/dry ED Progress - Date and Time Seen: Date and Time: 06/14/17 16:03 Pt. does not want a large work up and as he just had urine and labs three days ago I see no benefitting in repeating at this time as pt. is without any fever, numbness, tingling, or dysuria and pt. is still on abx. Given that pt. is elderly and hit his head and has a headache with baseline neuro deficit fell taht pt. needs CT of head and pt. is ok with this. - Vital Signs Patient's Vital Signs:: I have reviewed the patient's vital signs. Vital Signs: Vital Signs 06/14/17 15:42 Temperature 37.1 C Pulse Rate 57 L Respiratory 14 Rate Blood Pressure 162/69 O2 Sat by Pulse 99 Oximetry - CT/Ultrasound CT/Ultrasound Narrative: CT head negative for any acute process - Progress/Reassessment Chief Complaint: Fall Progress:: Unchanged Departure Clinical Impression: Forearm abrasion, non-infected Head contusion Qualifiers: Encounter type: initial encounter Contusion of head detail: scalp Qualified Code(s): S00.03XA - Contusion of scalp, initial encounter Parkinsonism Qualifiers: Parkinsonism type: Parkinson's disease Qualified Code(s): G20 - Parkinson's disease Fall Qualifiers: Encounter type: initial encounter Qualified Code(s): W19.XXXA - Unspecified fall, initial encounter - Departure Disposition: Other health care facility Condition: Good Instructions: Facial or Scalp Contusion, [id number] Additional Instructions: Please follow up with primary provider in 2-3 days. Please use gripper to diamond picker stuff from floor.
[2017-06-14 17:47] VITALS: BP 159/69
== END 2017-06-14 17:48 | disposition short-term general hospital (02) ==
LOC: ER 15:36
DX: S00.03XA Contusion of scalp, initial encounter (principal); S50.811A Abrasion of right forearm, initial encounter; G20 Parkinson's disease; W01.10XA Fall on same level from slipping, tripping and stumbling with subsequent striking against unspecified object, initial encounter; Z87.891 Personal history of nicotine dependence

== ENCOUNTER 2017-07-05 16:36 | Inpatient (IN) | payer MEDICARE ==
[2017-07-05 16:57] LABS: Urine Bilirubin Negative (NEGATIVE); Urine Blood 250 /ul (NEGATIVE); Urine Ketone 5 mg/dL (NEGATIVE); Urine Protein 100 mg/dL (NEGATIVE); Urine Urobilinogen Normal (NORMAL); Urine pH 7.5 pH (5.0-7.0)
[2017-07-05] MEDS ORDERED: NORMAL SALINE 1,000 ML IV ONE (17:04)
[2017-07-05] MEDS ORDERED: ACETAMINOPHEN 500 MG TABLET PO ONE (17:04)
[2017-07-05 17:18] LABS: Hematocrit 33.6 % (42.0-52.0); Hemoglobin 11.6 gm/dL (13.5-18.0); Mean Cell Volume 86.8 fl (78-100); Mean Corpuscular Hgb Conc 34.5 g/dl (32-36); Mean Platelet Volume 9.7 fl (6.0-9.5); Platelet Count 142 K/mm3 (150-450); Red Blood Count 3.87 M/mm3 (4.7-6.0); Red Cell Distribution Width 13.1 % (11.5-14.0); White Blood Count 16.3 K/mm3 (4.0-10.5)
[2017-07-05 17:21] LABS: Urine Appearance Cloudy; Urine Bacteria 3+; Urine Color Yellow; Urine Nitrite Positive (NEGATIVE); Urine WBC 25-50 /hpf (0-5)
[2017-07-05 17:22] LABS: Urine Amorphous Sediment Few - 1+ (NONE-FEW)
[2017-07-05 17:34] LABS: Albumin * 3.6 gm/dl (3.4-5.0); Anion Gap 14.9 mmol/L (6.8-13.8); BUN/Creatinine Ratio 22.2 (9.0-21.6); Bilirubin, Total 0.9 mg/dL (0.0-1.1); Ca. Corrected For Albumin 8.6 mg/dL (8.4-10.2); Calcium * 8.6 mg/dL (7.9-10.9); Carbon Dioxide 24.8 mmol/L (24-32.6); Magnesium 1.1 mg/dL (1.2-2.8); Potassium 3.7 mmol/L (3.4-4.6); Total Protein 6.7 gm/dL (6.2-8.2)
[2017-07-05 18:21] LABS: Total Cells Counted 100
--- NOTE | 2017-07-05 18:32 | ERNOTE ---
Neuro HPI ER Record Presenting Symptoms: weakness, confusion Time Seen by Provider: 07/05/17 16:55 Source: patient, family Immunizations: IMMUNIZATION HX Immunizations Up to Date Yes History of Influenza Vaccine Yes Hx Pneumococcal Vaccination Yes Allergies/Adverse Reactions: Allergies Allergy/AdvReac Type Severity Reaction Status Date / Time No Known Allergies Allergy Verified 07/05/17 16:44 Home Medications: HOME MEDICATIONS Aspirin [Aspirin EC] 81 mg PO DAILY 09/30/15 [Last Taken Unknown] Carbidopa/Levodopa [Carbidopa-Levo 25-100 mg Odt] 2 tab PO QID 09/30/15 [Last Taken Unknown] Levothyroxine Sodium [Synthroid] 50 mcg PO DAILY 09/30/15 [Last Taken Unknown] Lisinopril [Zestril] 20 mg PO DAILY 09/30/15 [Last Taken Unknown] Simvastatin [Zocor] 40 mg PO HS 09/30/15 [Last Taken Unknown] Ubidecarenone [Coq10] 100 mg PO DAILY 09/30/15 [Last Taken Unknown] glipiZIDE [Glipizide] 20 mg PO BIDWM 09/30/15 [Last Taken Unknown] metFORMIN HCL [Glucophage] 1,500 mg PO BIDWM 09/30/15 [Last Taken Unknown] Docusate Sodium 100 mg PO BID 04/18/17 [Last Taken Unknown] Omeprazole [Prilosec] 20 mg PO DAILY 04/18/17 [Last Taken Unknown] Sertraline HCl 25 mg PO DAILY 04/18/17 [Last Taken Unknown] Acetaminophen [Tylenol] 650 mg PO Q6H PRN #60 tablet 04/22/17 [Last Taken Unknown] Beta-Carotene(A) W-C , E/Min [Ocuvite] 1 tab PO DAILY #30 tablet 04/22/17 [Last Taken Unknown] Metoprolol Tartrate [Lopressor] 25 mg PO BID #30 tablet 04/22/17 [Last Taken Unknown] Beta-Carotene [Beta Carotene] 10,000 unit PO DAILY 06/09/17 [Last Taken Unknown] Bimatoprost [Lumigan 0.01% Ophthalmic Solution] 1 drop EACHEYE HS 06/09/17 [ Last Taken Unknown] Calcium Carbonate [Tums] 500 mg PO TID PRN 06/09/17 [Last Taken Unknown] Clotrimazole/Betamethasone Dip [Clotrimazole-Betamethasone Crm] 15 gm TP BID [Last Taken Unknown] rOPINIRole HCL [Requip] 0.5 mg PO TID 06/09/17 [Last Taken Unknown] Oxybutynin Chloride [Ditropan] 5 mg PO TID 06/10/17 [Last Taken Unknown] - History of Present Illness Narrative: Patient presents with fever and confusion and weakness. Since he said the last time he was like this here in overwhelming urinary tract infection and required several days of antibiotics intensive treatment to get him back on his feet. Onset of symptoms was approximately 24 hours ago and is getting worse Onset: gradual onset Severity: severe - Character of Deficits New weakness: Present: general (diffuse) Altered sensation: Present: other - discharge contusion Additional Deficits: Present: decrease ability to stand, decrease ability to walk Baseline Cognition: Present: poor alertness Baseline Gait: Present: uses a cane/walker Associated Symptoms: Reports: fever/chills, altered mental status Review of Systems - Review of Systems Constitutional: Present: See HPI, fever, weakness, malaise EYE: Present: no symptoms reported ENT: Present: no symptoms reported Respiratory: Present: no symptoms reported Cardiology: Present: no symptoms reported Gastrointestinal/Abdominal: Present: no symptoms reported Genitourinary: Present: no symptoms reported Musculoskeletal: Present: no symptoms reported Skin: Present: no symptoms reported Neurological: Present: weakness Endocrine: Present: no symptoms reported Hematologic/Lymphatic: Present: no symptoms reported Psych: Present: no symptoms reported - Patient's Past Medical History Patient History - Medical: Diabetes Type 2, Depression, Hypothyroidism, Other Patient History - Cardiac/Respiratory: Atrial Fibrillation, Coronary Heart Disease, Hypertension, Hyperlipidemia Patient History - Cancer: No Hx of Cancer Patient History - Surgical Procedures: Cataracts, Colonoscopy, Other Patient History - Other: None - Family History Mother Family History - Medical: , Other Family History - Cardiac/Respiratory: No pertinent hx Family History - Cancer: No pertinent family hx Father Family History - Medical: , No pertinent hx - Social History Living Situations: home Abuse History: No History of abuse Psych History: No pertinent hx Does anyone smoke in the home?: No Smoking Status: Never smoker Alcohol Use: none Drug Use: none - Immunizations Immunizations Up to Date: Yes Hx Pneumococcal Vaccination: Yes History of Influenza Vaccine: Yes Physical Exam - Physical Exam General Appearance: Present: wd/wn, alert, severe distress, thin Head Exam: Present: normal inspection Eye Exam: Normal inspection: bilateral, PERRL: bilateral Ears, Nose, Throat: Present: normal ENT inspection, H, normal pharynx Neck: Present: normal inspection, nontender Respiratory: Present: no respiratory distress, normal breath sounds, no accessory muscle use, chest nontender, lungs clear Cardiovascular/Chest: Present: regular rate, rhythm, no murmur, normal peripheral pulses Gastrointestinal/Abdominal: Present: normal bowel sounds, nontender, nondistended, soft, no organomegaly Rectal Exam: Present: deferred Back Exam: Present: normal inspection, normal range of motion Extremity Exam: Present: normal inspection, non-tender, no edema, normal range of motion Neurological Exam: Present: alert, oriented, normal mood/affect Skin Exam: Present: normal color, warm/dry Lymphatic Exam: Present: no adenopathy ED Progress - Results and Orders Patient's Lab Results:: I have reviewed the patient's lab results. - Vital Signs Patient's Vital Signs:: I have reviewed the patient's vital signs. Vital Signs: Vital Signs 07/05/17 07/05/17 07/05/17 16:38 16:53 17:33 Temperature 39.1 C H 38.8 C H Pulse Rate 82 79 83 Respiratory 14 24 H 23 H Rate Blood Pressure 167/67 145/73 146/57 O2 Sat by Pulse 96 97 93 Oximetry 07/05/17 07/05/17 17:49 18:05 Temperature 38.8 C H 39.0 C H Pulse Rate 92 84 Respiratory 11 L 18 Rate Blood Pressure 146/56 149/51 O2 Sat by Pulse 93 95 Oximetry - X-Ray X-Ray #1 X-Ray: chest - Progress/Reassessment Chief Complaint: Altered Mental Status Plan - Plan Plan: Given that the patient has an indwelling suprapubic catheter he will be susceptible to frequent urinary tract infections. His this suprapubic catheter has not been changed in some time I suspect that is the source for his recurrent infection. While the patient certainly has a severe UTI I suspect he has urosepsis as well however it does not appear to have spread to the blood at this juncture. She was given 1 L normal saline as well as a gram of Rocephin here in the emergency department and he will need to be admitted and very possibly sent to half-way for some time when he recovers from the severe urinary tract infection Departure Clinical Impression: Alteration consciousness UTI (urinary tract infection) Qualifiers: Urinary tract infection type: catheter-associated UTI Indwelling urinary catheter type: cystostomy catheter Encounter type: initial encounter Qualified Code(s): T83.510A - Infection and inflammatory reaction due to cystostomy catheter, initial encounter; N39.0 - Urinary tract infection, site not specified - Departure Disposition: [facility] Condition: Fair
[2017-07-05 18:48] LABS: Band 2 % (0-2.0); Lymphocyte 7 % (20-51); Monocyte 5 % (0-9); Neutrophil 86 % (42-75)
[2017-07-05 18:51] LABS: Platelet Estimate Decreased (NORMAL); RBC Morphology Normal (NORMAL); Toxic Granulation 1+
--- NOTE | 2017-07-05 21:09 | HP ---
Chief Complaint - Chief Complaint Date of Service: 07/05/17 Time of Service: 21:07 Chief Complaint: "Weakness, fever, confusion". Source of HPI- Pt; unreliable due to AMS, pt son Nitza, ER provider report, pt's EMR. History of Present Illness: Mr. Nielsen is a 81-yr-old WM pt of Dr. Delaney Robledo with a PMH of:A-fib, BPH , CAD, DMII, HLDM HTN, Parkinsonism and Restless Leg Syndrome. History is provided by the pt's son Nitza, as he is lethargic. The pt has been living at the [facility] for the past 1.5 yrs due to debilitation from the Parkinson's disease. He had struggled with urge urinary incontinence for a while and finally saw a Urologist at the [facility] who recommended alternative treatments. He ended up opting for a Suprapbuic catheter. He had the procedure on 04/01/17 and since then, nitza states that pt has had 4 recurrent episodes of UTIs. He states that the suprapubic catheter was supposed to be changed every 30 days according to the recommendations by the Urologist. However, that was not being done due to a miscommunication between him, the Urologist and the Assisted living facility staff. Nitza states that when he saw the pt on Tuesday, he was "his normal self," but today, he got a call from the [facility] reporting the Mr. Nielsen was acting disoriented, had a fever and could not walk. He also reports that Mr. Nielsen has been getting weaker, his mobility has decreased and his medications for Parkinsonism were increased recently in the hopes of improving his walking instabilities. At the ED, he was febrile with a temp of 39.1. His WBC was elevated at 16,300 with a left shift. The UA showed presence of a UTI. It makes a reasonable sense to admit him inpatient given the fact that he has a complicated UTI and is at risk for failing treatment outpatient. He already has postural instability from the Parkinson's and along with weakness from the presenting illness, he has a significant risk of injury and can suffer further loss of independent function if discharged too soon. - Patient's Past Medical History Patient History - Medical: Anxiety, Diabetes Type 2, Depression, Hypothyroidism , UTI'S, Other - Parkinsonism and Restless Leg Syndrome. Patient History - Cardiac/Respiratory: Atrial Fibrillation, Coronary Heart Disease, Hypertension, Hyperlipidemia Patient History - Cancer: No Hx of Cancer Patient History - Surgical Procedures: Cataracts, Colonoscopy, Other, Urology Patient History - Other: None - Family History Mother Family History - Medical: , Other Family History - Cardiac/Respiratory: No pertinent hx Family History - Cancer: No pertinent family hx Father Family History - Medical: , No pertinent hx - Social History Living Situations: [facility] Abuse History: No History of abuse Psych History: No pertinent hx Does anyone smoke in the home?: No Smoking Status: Never smoker Have you smoked in the past 12 months: No Alcohol Use: none Drug Use: none - Immunizations Immunizations Up to Date: Yes Hx Pneumococcal Vaccination: Yes History of Influenza Vaccine: Yes Review Of Systems (GEN) - Review of Systems Additional Comments: ROS unobtainable due to AMS. Immunizations: IMMUNIZATION HX Immunizations Up to Date Yes History of Influenza Vaccine Yes Hx Pneumococcal Vaccination Yes Allergies/Adverse Reactions: Allergies Allergy/AdvReac Type Severity Reaction Status Date / Time No Known Allergies Allergy Verified 07/05/17 16:44 Home Medications: HOME MEDICATIONS Aspirin [Aspirin EC] 81 mg PO DAILY 09/30/15 [Last Taken Unknown] Carbidopa/Levodopa [Carbidopa-Levo 25-100 mg Odt] 2.5 tab PO 0500 09/30/15 [ Last Taken Unknown] Levothyroxine Sodium [Synthroid] 50 mcg PO DAILY 09/30/15 [Last Taken Unknown] Lisinopril [Zestril] 20 mg PO DAILY 09/30/15 [Last Taken Unknown] Simvastatin [Zocor] 40 mg PO HS 09/30/15 [Last Taken Unknown] Ubidecarenone [Coq10] 100 mg PO DAILY 09/30/15 [Last Taken Unknown] glipiZIDE [Glipizide] 20 mg PO BIDWM 09/30/15 [Last Taken Unknown] metFORMIN HCL [Glucophage] 1,250 mg PO BIDWM 09/30/15 [Last Taken Unknown] Docusate Sodium 100 mg PO DAILY 04/18/17 [Last Taken Unknown] Omeprazole [Prilosec] 20 mg PO DAILY 04/18/17 [Last Taken Unknown] Sertraline HCl 25 mg PO DAILY 04/18/17 [Last Taken Unknown] Acetaminophen [Tylenol] 650 mg PO Q6H PRN #60 tablet 04/22/17 [Last Taken Unknown] Beta-Carotene(A) W-C , E/Min [Ocuvite] 1 tab PO DAILY #30 tablet 04/22/17 [Last Taken Unknown] Metoprolol Tartrate [Lopressor] 25 mg PO BID #30 tablet 04/22/17 [Last Taken Unknown] Beta-Carotene [Beta Carotene] 10,000 unit PO DAILY 06/09/17 [Last Taken Unknown] Bimatoprost [Lumigan 0.01% Ophthalmic Solution] 1 drop EACHEYE HS 06/09/17 [ Last Taken Unknown] Calcium Carbonate [Tums] 500 mg PO TID PRN 06/09/17 [Last Taken Unknown] Clotrimazole/Betamethasone Dip [Clotrimazole-Betamethasone Crm] 15 gm TP BID [Last Taken Unknown] rOPINIRole HCL [Requip] 0.5 mg PO TID 06/09/17 [Last Taken Unknown] Oxybutynin Chloride [Ditropan] 5 mg PO TID 06/10/17 [Last Taken Unknown] Carbidopa/Levodopa [Carbidopa-Levodopa 25-100 Tab] 2 each PO 1000 07/05/17 [ Last Taken Unknown] Carbidopa/Levodopa [Carbidopa-Levodopa 25-100 Tab] 2 each PO 1500 07/05/17 [ Last Taken Unknown] Carbidopa/Levodopa [Carbidopa-Levodopa 25-100 Tab] 2 each PO 1900 07/05/17 [ Last Taken Unknown] Carbidopa/Levodopa [Carbidopa-Levodopa 25-100 Tab] 2 each PO 2200 07/05/17 [ Last Taken Unknown] Exam - Exam Vital Signs: Vital Signs - Last Taken Temp 37.9 C H 07/05/17 19:23 Pulse 78 07/05/17 19:23 Resp 20 07/05/17 19:23 BP 137/55 07/05/17 19:23 Pulse Ox 96 07/05/17 19:23 Constitutional: Present: Cooperative, No distress, Lethargic, Elderly ENT Exam: Present: normal ENT inspection, dry mucous membranes. Absent: nasal drainage, pharyngeal erythema Eye Exam: bilateral eye: normal inspection, PERRL Neck: Present: non-tender, full range of motion, supple Back Exam: Present: normal inspection, no CVA tenderness Breasts: Present: Exam deferred Respiratory: Present: lungs clear, No rales, No wheezing Cardiovascular/Chest: Present: regular rate, rhythm, no edema, no murmur Abdomen: Present: Normal bowel sounds, soft, nontender /Rectal: Present: Other - Suprapubic Catheter. Extremity: Present: normal range of motion, non-tender, normal inspection, no pedal edema Skin Exam: Present: warm/dry, no cyanosis Lymphatic: Present: no adenopathy Neurologic: Present: abnormal gait, other - Oriented to self only, delayed thinking. Appearance: Present: appropriate appearance, impaired insight Eye contact: Present: decreased rate of speech, other Thoughts: Present: no apparent hallucination Diagnostic Studies: Laboratory Results WBC 16.3 K/mm3 (4.0-10.5) H 07/05/17 17:13 RBC 3.87 M/mm3 (4.7-6.0) L 07/05/17 17:13 Hgb 11.6 gm/dL (13.5-18.0) L 07/05/17 17:13 Hct 33.6 % (42.0-52.0) L 07/05/17 17:13 MCV 86.8 fl (78-100) 07/05/17 17:13 MCH 30.0 pg (27-31) 07/05/17 17:13 MCHC 34.5 g/dl (32-36) 07/05/17 17:13 RDW 13.1 % (11.5-14.0) 07/05/17 17:13 Plt Count 142 K/mm3 (150-450) L 07/05/17 17:13 MPV 9.7 fl (6.0-9.5) H 07/05/17 17:13 Immature Gran % (Auto) [employer] 07/05/17 17:13 Immature Gran # (Auto) [employer] 07/05/17 17:13 Neutrophils % [employer] 07/05/17 17:13 Neutrophils % (Manual) 86 % (42-75) H 07/05/17 17:13 Band Neuts % (Manual) 2 % (0-2.0) 07/05/17 17:13 Lymphocytes % [employer] 07/05/17 17:13 Lymphocytes % (Manual) 7 % (20-51) L 07/05/17 17:13 Monocytes % [employer] 07/05/17 17:13 Monocytes % (Manual) 5 % (0-9) 07/05/17 17:13 Eosinophils % [employer] 07/05/17 17:13 Basophils % [employer] 07/05/17 17:13 Nucleated RBC % [employer] 07/05/17 17:13 Neutrophils # [employer] 07/05/17 17:13 Neutrophils # (Manual) 14.0 K/mm3 (1.3-6.0) H 07/05/17 17:13 Lymphocytes # [employer] 07/05/17 17:13 Lymphocytes # (Manual) 1.1 k/mm3 (1.5-3.5) L 07/05/17 17:13 Monocytes # [employer] 07/05/17 17:13 Monocytes # (Manual) 0.8 k/mm3 (0.0-1.0) 07/05/17 17:13 Eosinophils # [employer] 07/05/17 17:13 Absolute Basophils [employer] 07/05/17 17:13 Toxic Granulation 1+ 07/05/17 17:13 Platelet Estimate Decreased (NORMAL) L 07/05/17 17:13 RBC Morphology Normal (NORMAL) 07/05/17 17:13 Sodium 134 mmol/L (132-142) 07/05/17 17:13 Plasma Sodium 135 mmol/L (130-142) 07/05/17 17:13 Potassium 3.7 mmol/L (3.4-4.6) 07/05/17 17:13 Chloride 98 mmol/L (97-106) 07/05/17 17:13 Carbon Dioxide 24.8 mmol/L (24-32.6) 07/05/17 17:13 Anion Gap 14.9 mmol/L (6.8-13.8) H 07/05/17 17:13 BUN 20 mg/dL (6-23) 07/05/17 17:13 Creatinine 0.90 mg/dL (0.4-1.4) 07/05/17 17:13 Est GFR (Non-Af Amer) 86 mL/min (60-130) 07/05/17 17:13 BUN/Creatinine Ratio 22.2 (9.0-21.6) H 07/05/17 17:13 Random Glucose 191 mg/dL (70-110) H 07/05/17 17:13 Lactic Acid, Venous 1.9 mmol/L (0.4-1.9) 07/05/17 17:13 Calcium 8.6 mg/dL (7.9-10.9) 07/05/17 17:13 Calcium Adj for Albumin 8.6 mg/dL (8.4-10.2) 07/05/17 17:13 Magnesium 1.1 mg/dL (1.2-2.8) L 07/05/17 17:13 Total Bilirubin 0.9 mg/dL (0.0-1.1) 07/05/17 17:13 AST 14 U/L (0-48) 07/05/17 17:13 ALT 17 U/L (19-67) L 07/05/17 17:13 Alkaline Phosphatase 51 U/L (50-170) 07/05/17 17:13 Total Protein 6.7 gm/dL (6.2-8.2) 07/05/17 17:13 Albumin 3.6 gm/dl (3.4-5.0) 07/05/17 17:13 Urine Color Yellow 07/05/17 16:50 Urine Appearance Cloudy 07/05/17 16:50 Urine pH 7.5 pH (5.0-7.0) 07/05/17 16:50 Ur Specific [place] 1.020 SP.GR. (1.005-1.030) 07/05/17 16:50 Urine Protein 100 mg/dL (NEGATIVE) H 07/05/17 16:50 Urine Glucose (UA) Negative mg/dL (NEGATIVE) 07/05/17 16:50 Urine Ketones 5 mg/dL (NEGATIVE) 07/05/17 16:50 Urine Blood 250 /ul (NEGATIVE) H 07/05/17 16:50 Urine Nitrate Positive (NEGATIVE) H 07/05/17 16:50 Urine Bilirubin Negative mg/dl (NEGATIVE) 07/05/17 16:50 Prot Sulfosalicylic Acd QNS 07/05/17 16:50 Urine Urobilinogen Normal EU/dl (NORMAL) 07/05/17 16:50 Ur Leukocyte Esterase 100 /ul (NEGATIVE) H 07/05/17 16:50 Urine RBC 10-25 /hpf (0-5) H 07/05/17 16:50 Urine WBC 25-50 /hpf (0-5) H 07/05/17 16:50 Ur Epithelial Cells None seen /hpf (0-5) 07/05/17 16:50 Amorphous Sediment Few - 1+ (NONE-FEW) 07/05/17 16:50 Urine Bacteria 3+ (NONE) H 07/05/17 16:50 Urine Culture Comments Culture to follow 07/05/17 16:50 Assessment/Plan - Assessment/Plan (1) Complicated UTI (urinary tract infection) Assessment: He has had 4 recurrent UTIs since the Suprapubic catheter was placed in March 2017 and according to pt's son, the kelly has not been replaced since April 2017. He has other risk factors for complicated UTI;advanced age, [facility]/ [facility] residency & comorbidities. The UA showed UTI presence, however, the ideal urine sample should be obtained by removing the current indwelling catheter and collecting a sample once replaced in order to avoid culturing the bacteria present in the biofilm of the catheter. Will continue with Rocephin 1 gm q 24 hours which is sufficient for now until culture results from proper urine sample. Monitor CBC in am. Problem: Acute (2) Altered mental status Assessment: The CXR did not have any acute findings. Suspect that this is due to infection from the UTI. Should see an improvement once the infection improves with Antibiotics. Problem: Acute (3) Discharge planning issues Assessment: Would likely benefit from being placed at a long-term facility vs returning to the Assisted Living due to progression and deterioration associated with Parkinsonism. Will perform MMSE to determine cognitive impairment/Dementia. Son reports functional physical decline, difficulty swallowing and coughing with thin liquids. Will have speech evaluate swallowing as he has a risk for aspiration pneumonia. Will have case management assist placement finding. Problem: Acute (4) Diabetes Assessment: Accu checks ACHS, Consistent carb diet. Will add low dose SSI for better control of blood sugars during infection. Will continue with Metformin & glipizide Problem: Chronic Qualifiers: Diabetes mellitus type: type 2 (5) A-fib Assessment: On Aspirin & Metoprolol. Not on anticoagulation therapy due to high risk for falls from impaired gait caused by Parkinsonism. Place on remote telemetry. Problem: Chronic Qualifiers: Atrial fibrillation type: paroxysmal Qualified Code(s): I48.0 - Paroxysmal atrial fibrillation (6) Parkinsonism Assessment: Continue with Carbidopa-Levodopa. Involve PT/OT for continued strengthening. Problem: Chronic Qualifiers: Parkinsonism type: Parkinson's disease Qualified Code(s): G20 - Parkinson' s disease (7) HTN (hypertension) Assessment: Stable- on Lisinopril. Problem: Chronic Qualifiers: Hypertension type: essential hypertension Qualified Code(s): I10 - Essential (primary) hypertension
[2017-07-05] MEDS: NORMAL SALINE 1,000 ML IV PRN (21:31)
[2017-07-05] MEDS ORDERED: ACETAMINOPHEN 325 MG TABLET PO PRN (22:19)
[2017-07-05] MEDS ORDERED: CALCIUM CARBONATE 500 MG TAB.CHEW PO PRN (22:19)
[2017-07-05] MEDS ORDERED: rOPINIRole HCL 1 MG TABLET ONE (22:55)
[2017-07-05] MEDS ORDERED: BIMATOPROST 25 DROP BTL ONE (22:56)
[2017-07-05] MEDS: INSULIN LISPRO 100 UNITS/ML VIAL SC SCH (22:59)
[2017-07-05] MEDS: ACETAMINOPHEN 325 MG TABLET PO PRN (23:00)
[2017-07-05] MEDS: BIMATOPROST 25 DROP BTL EACHEYE SCH (23:00)
[2017-07-05] MEDS: OXYBUTYNIN CHLORIDE 5 MG TABLET PO SCH (23:01)
[2017-07-05] MEDS: SIMVASTATIN 40 MG TABLET PO SCH (23:01)
[2017-07-05] MEDS: rOPINIRole HCL 0.5 MG TABLET PO SCH (23:02)
[2017-07-05] MEDS: CARBIDOPA/LEVODOPA 25/100 1 TAB TABLET PO SCH (23:02)
[2017-07-05] MEDS: METOPROLOL TARTRATE 25 MG TABLET PO SCH (23:12)
[2017-07-05] MEDS: CLOTRIMAZOLE/BETAMET DIPROP 15 APPL TUBE TP SCH (23:29)
[2017-07-06] MEDS: CARBIDOPA/LEVODOPA 25/100 1 TAB TABLET PO SCH ×5 (05:06→22:16)
[2017-07-06] MEDS: NORMAL SALINE 1,000 ML IV PRN ×3 (05:06→22:30)
[2017-07-06 06:10] LABS: Hematocrit 30.2 % (42.0-52.0); Hemoglobin 10.2 gm/dL (13.5-18.0); Mean Cell Volume 88.3 fl (78-100); Mean Corpuscular Hemoglobin 29.8 pg (27-31); Mean Corpuscular Hgb Conc 33.8 g/dl (32-36); Mean Platelet Volume 10.1 fl (6.0-9.5); Neutrophil # 11.1 K/mm3 (1.3-6.0); Neutrophil % 77.4 % (42-75.0); Platelet Count 133 K/mm3 (150-450); Red Blood Count 3.42 M/mm3 (4.7-6.0); Red Cell Distribution Width 13.3 % (11.5-14.0); White Blood Count 14.3 K/mm3 (4.0-10.5)
[2017-07-06 06:24] LABS: Anion Gap 13.2 mmol/L (6.8-13.8); BUN/Creatinine Ratio 21.3 (9.0-21.6); Calcium * 7.9 mg/dL (7.9-10.9); Carbon Dioxide 24.5 mmol/L (24-32.6); Estimated Creat Clear 68.4; Potassium 3.7 mmol/L (3.4-4.6)
[2017-07-06] MEDS: INSULIN LISPRO 100 UNITS/ML VIAL SC SCH ×4 (06:46→22:12)
[2017-07-06] MEDS: LEVOTHYROXINE SODIUM 50 MCG TABLET PO SCH (06:46)
[2017-07-06] MEDS ORDERED: OMEPRAZOLE 20 MG CAPSULE.SA PO SCH (07:00)
[2017-07-06] MEDS: PANTOPRAZOLE SODIUM 20 MG TABLET.DR PO SCH (07:33)
[2017-07-06] MEDS ORDERED: FLU VACC QS2017-18(6MOS UP)/PF 60 MCG/0.5 ML SYRINGE IM ONE (09:00)
[2017-07-06] MEDS ORDERED: LISINOPRIL 10 MG TABLET PO SCH (09:00)
[2017-07-06] MEDS: DOCUSATE SODIUM 100 MG CAPSULE PO SCH (09:05)
[2017-07-06] MEDS: ASPIRIN 81 MG TABLET.DR PO SCH (09:05)
[2017-07-06] MEDS: OXYBUTYNIN CHLORIDE 5 MG TABLET PO SCH ×3 (09:05→17:19)
[2017-07-06] MEDS: metFORMIN HCL 500 MG TABLET PO SCH ×2 (09:06→17:20)
[2017-07-06] MEDS: METOPROLOL TARTRATE 25 MG TABLET PO SCH ×2 (09:06→22:13)
[2017-07-06] MEDS: glipiZIDE 10 MG TABLET PO SCH ×2 (09:06→17:21)
[2017-07-06] MEDS: rOPINIRole HCL 0.5 MG TABLET PO SCH ×3 (09:07→17:21)
[2017-07-06] MEDS: CLOTRIMAZOLE/BETAMET DIPROP 15 APPL TUBE TP SCH ×2 (09:07→22:13)
[2017-07-06] MEDS: SERTRALINE HCL 50 MG TABLET PO SCH (09:08)
[2017-07-06] MEDS: BETA-CAROTENE(A) W-C , E/MIN 1 TAB TABLET PO SCH (09:08)
[2017-07-06] MEDS: LISINOPRIL 20 MG TABLET PO SCH (09:08)
[2017-07-06] MEDS: COQ10 100 MG PO SCH (09:53)
[2017-07-06] MEDS: BETA CAROTENE 10000 UNIT PO SCH (09:53)
--- NOTE | 2017-07-06 10:17 | PN ---
Subjective - Date and Time Seen Date: 07/06/17 - n Time: 10:16 Subjective Narrative: Patient is more awake. AAO x3. T max 39. Objective - Review of Systems Generalized/Overall Review: Reports: Weakness, Fever EENTM: Reports: No Symptoms Reported Respiratory: Denies: Cough, Shortness of Breath Cardiac: Denies: Chest Pain, Palpitations Abdominal: Denies: Nausea, Vomiting Genitourinary Symptoms: Denies: Urgency, Frequency - Vitals Vitals: Last Vital Signs Temp 37 C 07/06/17 07:58 Pulse 59 L 07/06/17 09:08 Resp 18 07/06/17 07:58 BP 124/57 07/06/17 09:08 Pulse Ox 98 07/06/17 07:58 - Abnormal Lab Findings Abnormal Lab Findings: Abnormal Lab Results 07/06/17 07/06/17 Range/Units 06:05 06:05 WBC 14.3 H (4.0-10.5) K/mm3 RBC 3.42 L (4.7-6.0) M/mm3 Hgb 10.2 L (13.5-18.0) gm/dL Hct 30.2 L (42.0-52.0) % Plt Count 133 L (150-450) K/mm3 MPV 10.1 H (6.0-9.5) fl Immature Gran % (Auto) 0.70 H (0.001-0.429) % Immature Gran # (Auto) 0.10 H (0.000-0.0310) K/mm3 Neutrophils % 77.4 H (42-75.0) % Lymphocytes % 11.9 L (20-51) % Neutrophils # 11.1 H (1.3-6.0) K/mm3 Monocytes # 1.3 H (0.0-1.0) k/mm3 Random Glucose 194 H (70-110) mg/dL - Exam Constitutional: Present: Alert, Oriented x3, Cooperative, Elderly ENT Exam: Present: hearing grossly normal Neck: Present: supple Breasts: Present: Exam deferred Respiratory: Present: decreased breath sounds, No rales, No wheezing Cardiovascular/Chest: Present: regular rate, rhythm, no JVD, no murmur Abdomen: Present: Normal bowel sounds, soft, nontender, nondistended /Rectal: Present: Other - positive whitish exudate around and in foreskin. strotum is slightly swollen and tender- this was examined in the afternoon Extremity: Present: no pedal edema, no calf tenderness Neurologic: Present: residential caregiver II-XII nml as tested, no motor/sensory deficits, oriented x 3 Assessment/Plan - Problems/Diagnosis (1) Altered mental status Problem: Acute Narrative: improved (2) UTI (urinary tract infection) Problem: Acute Qualifiers: Urinary tract infection type: catheter-associated UTI Indwelling urinary catheter type: cystostomy catheter Encounter type: initial encounter Qualified Code(s): T83.510A - Infection and inflammatory reaction due to cystostomy catheter, initial encounter; N39.0 - Urinary tract infection, site not specified Narrative: recurrent. await C & S. on IV rocephin. on suprapubic catheter- Urology on consult.. (3) Fever and chills Problem: Acute Narrative: due to recurrent UTI (4) A-fib Problem: Chronic Qualifiers: Atrial fibrillation type: paroxysmal Qualified Code(s): I48.0 - Paroxysmal atrial fibrillation Narrative: on ASA and metorpolol. high risk for falls (5) Diabetes Problem: Chronic Qualifiers: Diabetes mellitus type: type 2 Narrative: continue with home meds (6) HLD (hyperlipidemia) Problem: Chronic Qualifiers: Hyperlipidemia type: mixed hyperlipidemia Qualified Code(s): E78.2 - Mixed hyperlipidemia Narrative: continue with home meds (7) HTN (hypertension) Problem: Chronic Qualifiers: Hypertension type: essential hypertension Qualified Code(s): I10 - Essential (primary) hypertension Narrative: continue with home meds (8) Parkinsonism Problem: Chronic Qualifiers: Parkinsonism type: Parkinson's disease Qualified Code(s): G20 - Parkinson' s disease Narrative: continue karli meds. referred to PT/OT (9) Tenderness of scrotum Problem: Acute Narrative: r/o Orchitis/epididymitis. will do US of the scrotum. continue with IV antibiotics.
[2017-07-06] MEDS: ACETAMINOPHEN 325 MG TABLET PO PRN (12:14)
[2017-07-06] MEDS: NYSTATIN 15 APPL BTL TP SCH ×2 (12:48→22:14)
[2017-07-06 19:55] LABS: Urine Bilirubin Negative (NEGATIVE); Urine Blood 25 /ul (NEGATIVE); Urine Ketone Negative (NEGATIVE); Urine Nitrite Negative (NEGATIVE); Urine Protein Negative (NEGATIVE); Urine Specific Gravity <=1.005 SP.GR. (1.005-1.030); Urine Urobilinogen Normal (NORMAL); Urine pH 6.5 pH (5.0-7.0)
[2017-07-06 20:07] LABS: Urine Appearance Clear; Urine Bacteria 2+; Urine Color Pale Yellow; Urine RBC 0-5 /hpf (0-5)
[2017-07-06] MEDS: BIMATOPROST 25 DROP BTL EACHEYE SCH (22:14)
[2017-07-06] MEDS: SIMVASTATIN 40 MG TABLET PO SCH (22:17)
[2017-07-07] MEDS: CARBIDOPA/LEVODOPA 25/100 1 TAB TABLET PO SCH ×5 (06:40→21:10)
[2017-07-07] MEDS: PANTOPRAZOLE SODIUM 20 MG TABLET.DR PO SCH (06:55)
[2017-07-07] MEDS: LEVOTHYROXINE SODIUM 50 MCG TABLET PO SCH (06:55)
[2017-07-07 06:58] LABS: Hematocrit 34.7 % (42.0-52.0); Hemoglobin 11.8 gm/dL (13.5-18.0); Mean Cell Volume 88.5 fl (78-100); Mean Corpuscular Hemoglobin 30.1 pg (27-31); Mean Platelet Volume 10.3 fl (6.0-9.5); Neutrophil # 10.1 K/mm3 (1.3-6.0); Neutrophil % 77.1 % (42-75.0); Platelet Count 146 K/mm3 (150-450); Red Blood Count 3.92 M/mm3 (4.7-6.0); Red Cell Distribution Width 13.2 % (11.5-14.0); White Blood Count 13.1 K/mm3 (4.0-10.5)
[2017-07-07] MEDS: INSULIN LISPRO 100 UNITS/ML VIAL SC SCH ×4 (06:58→21:08)
[2017-07-07 07:24] LABS: Albumin * 3.5 gm/dl (3.4-5.0); Anion Gap 17.7 mmol/L (6.8-13.8); BUN/Creatinine Ratio 15.1 (9.0-21.6); Bilirubin, Total 0.5 mg/dL (0.0-1.1); Ca. Corrected For Albumin 8.7 mg/dL (8.4-10.2); Calcium * 8.6 mg/dL (7.9-10.9); Carbon Dioxide 22.3 mmol/L (24-32.6); Magnesium 1.3 mg/dL (1.2-2.8)
--- NOTE | 2017-07-07 08:00 | PN ---
Progess Note - Interim Narrative: 07/07/17 07:59 On and off confusion. Await US of the scrotum.
[2017-07-07] MEDS: METOPROLOL TARTRATE 25 MG TABLET PO SCH ×2 (08:25→21:09)
[2017-07-07] MEDS: ASPIRIN 81 MG TABLET.DR PO SCH (08:25)
[2017-07-07] MEDS: glipiZIDE 10 MG TABLET PO SCH ×2 (08:27→18:55)
[2017-07-07] MEDS: OXYBUTYNIN CHLORIDE 5 MG TABLET PO SCH ×3 (08:27→16:46)
[2017-07-07] MEDS: DOCUSATE SODIUM 100 MG CAPSULE PO SCH (08:27)
[2017-07-07] MEDS: SERTRALINE HCL 50 MG TABLET PO SCH (08:28)
[2017-07-07] MEDS: NYSTATIN 15 APPL BTL TP SCH ×2 (08:28→21:10)
[2017-07-07] MEDS: BETA CAROTENE 10000 UNIT PO SCH (08:28)
[2017-07-07] MEDS: metFORMIN HCL 500 MG TABLET PO SCH ×2 (08:28→16:48)
[2017-07-07] MEDS: CLOTRIMAZOLE/BETAMET DIPROP 15 APPL TUBE TP SCH ×2 (08:29→21:09)
[2017-07-07] MEDS: LISINOPRIL 20 MG TABLET PO SCH (08:29)
[2017-07-07] MEDS: BETA-CAROTENE(A) W-C , E/MIN 1 TAB TABLET PO SCH (09:00)
--- NOTE | 2017-07-07 11:13 | PN ---
Subjective - Date and Time Seen Date: 07/07/17 Time: 11:07 Subjective Narrative: Patient is confused on and off. Afebrile. Tmax is 37.2. Objective - Review of Systems Generalized/Overall Review: Reports: Weakness. Denies: Chills, Fever EENTM: Reports: No Symptoms Reported Respiratory: Denies: Shortness of Breath Cardiac: Denies: Chest Pain, Palpitations Abdominal: Denies: Nausea, Vomiting Genitourinary Symptoms: Reports: Other - scrotal pain. Denies: Urgency, Frequency - Vitals Vitals: Last Vital Signs Temp 36.8 C 07/07/17 07:04 Pulse 63 07/07/17 08:29 Resp 18 07/07/17 07:04 BP 155/58 07/07/17 08:29 Pulse Ox 98 07/07/17 07:04 - Abnormal Lab Findings Abnormal Lab Findings: Abnormal Lab Results 07/06/17 07/07/17 07/07/17 Range/Units 17:32 06:57 06:57 WBC 13.1 H (4.0-10.5) K/mm3 RBC 3.92 L (4.7-6.0) M/mm3 Hgb 11.8 L (13.5-18.0) gm/dL Hct 34.7 L (42.0-52.0) % Plt Count 146 L (150-450) K/mm3 MPV 10.3 H (6.0-9.5) fl Immature Gran % (Auto) 0.80 H (0.001-0.429) % Immature Gran # (Auto) 0.11 H (0.000-0.0310) K/mm3 Neutrophils % 77.1 H (42-75.0) % Lymphocytes % 13.6 L (20-51) % Neutrophils # 10.1 H (1.3-6.0) K/mm3 Carbon Dioxide 22.3 L (24-32.6) mmol/L Anion Gap 17.7 H (6.8-13.8) mmol/L Random Glucose 232 H (70-110) mg/dL ALT 10 L (19-67) U/L Urine Blood 25 H (NEGATIVE) /ul Ur Leukocyte Esterase 25 H (NEGATIVE) /ul Urine WBC 5-10 H (0-5) /hpf Urine Bacteria 2+ H (NONE) - Exam Constitutional: Present: Alert, Oriented x3, Cooperative, Elderly ENT Exam: Present: hearing grossly normal Neck: Present: supple Respiratory: Present: decreased breath sounds, No rales, No wheezing Cardiovascular/Chest: Present: regular rate, rhythm, no JVD, no murmur Abdomen: Present: Normal bowel sounds, soft, nontender, nondistended /Rectal: Present: Other - tender , right scrotum Extremity: Present: no pedal edema, no calf tenderness Assessment/Plan - Problems/Diagnosis (1) Tenderness of scrotum Problem: Acute Narrative: orchitis/epididymitis. is on Rocephin. Addendum : US showed epididymitis/ orchitis complex- will add levaquin. (2) Altered mental status Problem: Acute Narrative: toxic /metabolic vs beginning dementia. (3) UTI (urinary tract infection) Problem: Acute Qualifiers: Urinary tract infection type: catheter-associated UTI Indwelling urinary catheter type: cystostomy catheter Narrative: recurrent.On IV rocephin. C & S growing- Morganella , Gram negative bacilli , Grp B Hemolytic strep. Will stay on Rocephin for now as the WBC is going down, clinically better. Test did not include ceftriaxone but was sensitive to ceftazidime- both 3rd generation cephalosporin. (4) Fever and chills Problem: Acute Narrative: due to to recurrent UTI vs Orchitis/epidymitis (5) A-fib Problem: Chronic Qualifiers: Atrial fibrillation type: paroxysmal Qualified Code(s): I48.0 - Paroxysmal atrial fibrillation (6) Diabetes Problem: Chronic Qualifiers: Diabetes mellitus type: type 2 (7) HLD (hyperlipidemia) Problem: Chronic Qualifiers: Hyperlipidemia type: mixed hyperlipidemia Qualified Code(s): E78.2 - Mixed hyperlipidemia (8) HTN (hypertension) Problem: Chronic Qualifiers: Hypertension type: essential hypertension Qualified Code(s): I10 - Essential (primary) hypertension (9) Parkinsonism Problem: Chronic Qualifiers: Parkinsonism type: Parkinson's disease Qualified Code(s): G20 - Parkinson' s disease
[2017-07-07] MEDS: COQ10 100 MG PO SCH (11:16)
[2017-07-07] MEDS: rOPINIRole HCL 0.5 MG TABLET PO SCH ×3 (11:20→18:55)
[2017-07-07] MEDS: LEVOFLOXACIN 500 MG TABLET PO SCH (13:58)
[2017-07-07] MEDS: BIMATOPROST 25 DROP BTL EACHEYE SCH (21:09)
[2017-07-07] MEDS: SIMVASTATIN 40 MG TABLET PO SCH (21:10)
[2017-07-08] MEDS: NORMAL SALINE 1,000 ML IV PRN ×3 (01:17→19:49)
[2017-07-08] MEDS: CARBIDOPA/LEVODOPA 25/100 1 TAB TABLET PO SCH ×5 (05:55→22:18)
[2017-07-08 07:29] LABS: Hematocrit 30.6 % (42.0-52.0); Hemoglobin 10.3 gm/dL (13.5-18.0); Mean Cell Volume 88.4 fl (78-100); Mean Corpuscular Hemoglobin 29.8 pg (27-31); Mean Corpuscular Hgb Conc 33.7 g/dl (32-36); Mean Platelet Volume 9.5 fl (6.0-9.5); Neutrophil # 5.4 K/mm3 (1.3-6.0); Neutrophil % 70.8 % (42-75.0); Platelet Count 120 K/mm3 (150-450); Red Blood Count 3.46 M/mm3 (4.7-6.0); Red Cell Distribution Width 13.2 % (11.5-14.0); White Blood Count 7.7 K/mm3 (4.0-10.5)
[2017-07-08] MEDS: LEVOTHYROXINE SODIUM 50 MCG TABLET PO SCH (07:46)
[2017-07-08] MEDS: PANTOPRAZOLE SODIUM 20 MG TABLET.DR PO SCH (07:46)
[2017-07-08] MEDS: INSULIN LISPRO 100 UNITS/ML VIAL SC SCH ×4 (07:46→20:01)
[2017-07-08 07:51] LABS: Anion Gap 15.1 mmol/L (6.8-13.8); Calcium * 8.3 mg/dL (7.9-10.9); Carbon Dioxide 23.7 mmol/L (24-32.6); Potassium 3.8 mmol/L (3.4-4.6)
--- NOTE | 2017-07-08 08:23 | DS ---
(1) Tenderness of scrotum Diagnosis(s): Epididymitis/orchitis. Problem: Acute (2) Altered mental status Problem: Acute (3) UTI (urinary tract infection) Diagnosis(s): recurrent Problem: Acute Qualifiers: Urinary tract infection type: catheter-associated UTI Indwelling urinary catheter type: cystostomy catheter (4) Fever and chills Problem: Ruled-out (5) A-fib Problem: Chronic Qualifiers: Atrial fibrillation type: paroxysmal Qualified Code(s): I48.0 - Paroxysmal atrial fibrillation (6) Diabetes Problem: Chronic Qualifiers: Diabetes mellitus type: type 2 (7) HLD (hyperlipidemia) Problem: Chronic Qualifiers: Hyperlipidemia type: mixed hyperlipidemia Qualified Code(s): E78.2 - Mixed hyperlipidemia (8) HTN (hypertension) Problem: Chronic Qualifiers: Hypertension type: essential hypertension Qualified Code(s): I10 - Essential (primary) hypertension (9) Parkinsonism Problem: Chronic Qualifiers: Parkinsonism type: Parkinson's disease Qualified Code(s): G20 - Parkinson' s disease Description of Stay: Kaushal Nielsen is a 81-yr-old WM with a PMH of:A-fib, BPH, CAD, DMII, HLDM HTN, Parkinsonism and Restless Leg Syndrome who was admitted on 07/05/2017.. History was provided by the pt's son Nitza, as he was lethargic. The pt has been living at the [facility] for the past 1.5 yrs due to debilitation from the Parkinson's disease. He had struggled with urge urinary incontinence for a while and finally saw a Urologist at the [facility] who recommended alternative treatments. He ended up opting for a Suprapbuic catheter. He had the procedure on 04/01/17 and since then, nitza states that pt has had 4 recurrent episodes of UTIs. He states that the suprapubic catheter was supposed to be changed every 30 days according to the recommendations by the Urologist. However, that was not being done due to a miscommunication between him, the Urologist and the Assisted living facility staff. Nitza was acting disoriented on the day of admission, had a fever and could not walk. He also reported that Mr. Nielsen has been getting weaker, his mobility has decreased and his medications for Parkinsonism were increased recently in the hopes of improving his walking instabilities. At the ED, he was febrile with a temp of 39.1. His WBC was elevated at 16,300 with a left shift. The UA showed presence of a UTI. He was admitted inpatient due to a possible complicated UTI and was at risk for failing treatment outpatient. He already has postural instability from the Parkinson's and along with weakness from the presenting illness, he has a significant risk of injury and can suffer further loss of independent function if discharged too soon. He was started on IV antibiotics. His first UCS wass polymicrobial and likely due to contmaination as it was taken from his 3 month catheter. His second UCS showed no growth. He did complain with scrotal tenderness this time and US showed orchitis/epididymitis and Levaquin was added. His WBC this morning is back to norrmal. [facility] Procedures Performed: none Discharge Disposition: Home self care Disposition: Home self-care Condition: Fair Discharge Activity: Activity as tolerated Discharge Diet: Low salt Referrals: Delaney Robledo MD [Primary Care Provider] - Additional Patient Instructions (free text): Please make TCM at discharge, if applicable. Thank you! Jocelyn @ [facility] [id number]. Follow up with PCP in 2 weeks. Prescriptions (Any new or edited meds): Levofloxacin [Levaquin] 500 mg PO DAILY 10 Days #30 tab Complete Home Medications List: Complete Home Medication List: Aspirin [Aspirin EC] 81 mg PO DAILY 09/30/15 Carbidopa/Levodopa [Carbidopa-Levo 25-100 mg Odt] 2.5 tab PO 0500 09/30/15 Levothyroxine Sodium [Synthroid] 50 mcg PO DAILY 09/30/15 Lisinopril [Zestril] 20 mg PO DAILY 09/30/15 Simvastatin [Zocor] 40 mg PO HS 09/30/15 Ubidecarenone [Coq10] 100 mg PO DAILY 09/30/15 glipiZIDE [Glipizide] 20 mg PO BIDWM 09/30/15 metFORMIN HCL [Glucophage] 1,250 mg PO BIDWM 09/30/15 Docusate Sodium 100 mg PO DAILY 04/18/17 Omeprazole [Prilosec] 20 mg PO DAILY 04/18/17 Sertraline HCl 25 mg PO DAILY 04/18/17 Acetaminophen [Tylenol] 650 mg PO Q6H PRN #60 tablet 04/22/17 Beta-Carotene(A) W-C , E/Min [Ocuvite] 1 tab PO DAILY #30 tablet 04/22/17 Metoprolol Tartrate [Lopressor] 25 mg PO BID #30 tablet 04/22/17 Beta-Carotene [Beta Carotene] 10,000 unit PO DAILY 06/09/17 Bimatoprost [Lumigan 0.01% Ophthalmic Solution] 1 drop EACHEYE HS 06/09/17 Calcium Carbonate [Tums] 500 mg PO TID PRN 06/09/17 Clotrimazole/Betamethasone Dip [Clotrimazole-Betamethasone Crm] 15 gm TP BID rOPINIRole HCL [Requip] 0.5 mg PO TID 06/09/17 Oxybutynin Chloride [Ditropan] 5 mg PO TID 06/10/17 Carbidopa/Levodopa [Carbidopa-Levodopa 25-100 Tab] 2 each PO 1000 07/05/17 Carbidopa/Levodopa [Carbidopa-Levodopa 25-100 Tab] 2 each PO 1500 07/05/17 Carbidopa/Levodopa [Carbidopa-Levodopa 25-100 Tab] 2 each PO 1900 07/05/17 Carbidopa/Levodopa [Carbidopa-Levodopa 25-100 Tab] 2 each PO 0 07/05/17 Levofloxacin [Levaquin] 500 mg PO DAILY 10 Days #30 tab 07/08/17 metFORMIN HCL [Glucophage] 250 mg PO BIDWM tablet 07/08/17
[2017-07-08] MEDS: LISINOPRIL 20 MG TABLET PO SCH (09:23)
[2017-07-08] MEDS: CLOTRIMAZOLE/BETAMET DIPROP 15 APPL TUBE TP SCH ×2 (09:23→20:03)
[2017-07-08] MEDS: ASPIRIN 81 MG TABLET.DR PO SCH (09:23)
[2017-07-08] MEDS: COQ10 100 MG PO SCH (09:23)
[2017-07-08] MEDS: rOPINIRole HCL 0.5 MG TABLET PO SCH ×3 (09:23→18:01)
[2017-07-08] MEDS: BETA-CAROTENE(A) W-C , E/MIN 1 TAB TABLET PO SCH (09:23)
[2017-07-08] MEDS: glipiZIDE 10 MG TABLET PO SCH ×2 (09:24→18:00)
[2017-07-08] MEDS: metFORMIN HCL 500 MG TABLET PO SCH ×2 (09:24→18:00)
[2017-07-08] MEDS: SERTRALINE HCL 50 MG TABLET PO SCH (09:24)
[2017-07-08] MEDS: DOCUSATE SODIUM 100 MG CAPSULE PO SCH (09:24)
[2017-07-08] MEDS: METOPROLOL TARTRATE 25 MG TABLET PO SCH ×2 (09:24→20:02)
[2017-07-08] MEDS: BETA CAROTENE 10000 UNIT PO SCH (09:25)
[2017-07-08] MEDS: OXYBUTYNIN CHLORIDE 5 MG TABLET PO SCH ×3 (09:25→18:00)
[2017-07-08] MEDS: NYSTATIN 15 APPL BTL TP SCH ×2 (09:26→20:02)
[2017-07-08] MEDS: LEVOFLOXACIN 500 MG TABLET PO SCH (11:42)
[2017-07-08] MEDS ORDERED: FLU VACC QS2017-18(6MOS UP)/PF 60 MCG/0.5 ML SYRINGE IM ONE (16:00)
[2017-07-08] MEDS: SIMVASTATIN 40 MG TABLET PO SCH (20:02)
[2017-07-08] MEDS: BIMATOPROST 25 DROP BTL EACHEYE SCH (20:03)
[2017-07-08] MEDS ORDERED: LORazepam 1 MG TABLET PO STA (22:00)
[2017-07-09] MEDS: CARBIDOPA/LEVODOPA 25/100 1 TAB TABLET PO SCH ×5 (05:44→22:32)
[2017-07-09] MEDS: PANTOPRAZOLE SODIUM 20 MG TABLET.DR PO SCH (07:00)
[2017-07-09] MEDS: LEVOTHYROXINE SODIUM 50 MCG TABLET PO SCH (07:00)
[2017-07-09] MEDS: INSULIN LISPRO 100 UNITS/ML VIAL SC SCH ×4 (07:01→21:01)
[2017-07-09] MEDS: NYSTATIN 15 APPL BTL TP SCH ×2 (08:59→20:59)
[2017-07-09] MEDS: ASPIRIN 81 MG TABLET.DR PO SCH (08:59)
[2017-07-09] MEDS: DOCUSATE SODIUM 100 MG CAPSULE PO SCH (09:00)
[2017-07-09] MEDS: CLOTRIMAZOLE/BETAMET DIPROP 15 APPL TUBE TP SCH ×2 (09:00→20:58)
[2017-07-09] MEDS: metFORMIN HCL 500 MG TABLET PO SCH ×2 (09:00→16:59)
[2017-07-09] MEDS: SERTRALINE HCL 50 MG TABLET PO SCH (09:01)
[2017-07-09] MEDS: OXYBUTYNIN CHLORIDE 5 MG TABLET PO SCH ×3 (09:01→16:58)
[2017-07-09] MEDS: BETA-CAROTENE(A) W-C , E/MIN 1 TAB TABLET PO SCH (09:01)
[2017-07-09] MEDS: rOPINIRole HCL 0.5 MG TABLET PO SCH ×3 (09:02→16:58)
[2017-07-09] MEDS: METOPROLOL TARTRATE 25 MG TABLET PO SCH ×2 (09:02→20:58)
[2017-07-09] MEDS: glipiZIDE 10 MG TABLET PO SCH ×2 (09:02→16:58)
[2017-07-09] MEDS: COQ10 100 MG PO SCH (09:03)
[2017-07-09] MEDS: LISINOPRIL 20 MG TABLET PO SCH (09:03)
[2017-07-09] MEDS: BETA CAROTENE 10000 UNIT PO SCH (09:03)
[2017-07-09] MEDS: NORMAL SALINE 1,000 ML IV PRN ×2 (09:13→17:33)
[2017-07-09] MEDS: LEVOFLOXACIN 500 MG TABLET PO SCH (10:23)
[2017-07-09] MEDS ORDERED: ONDANSETRON HCL/PF 2 MG/ML VIAL IV PRN (12:50)
[2017-07-09] MEDS ORDERED: MORPHINE SULFATE 2 MG/ML DISP.SYRIN IV ONE (13:00)
--- NOTE | 2017-07-09 13:09 | PN ---
<Maegan Escobar - Last Filed: 07/09/17 14:04> Subjective - Date and Time Seen Date: 07/09/17 Time: 13:09 Subjective Narrative: patient states he feels better this am. sons says patient seems confused at times, especially in the evening - ?? Objective - Review of Systems Generalized/Overall Review: Reports: No Symptoms Reported EENTM: Reports: No Symptoms Reported Respiratory: Reports: No Symptoms Reported Cardiac: Reports: No Symptoms Reported Abdominal: Reports: No Symptoms Reported Genitourinary Symptoms: Reports: No Symptoms Reported Musculoskeletal Complaints: Reports: No Symptoms Reported Neurological: Reports: No Symptoms Reported Skin: Reports: No Symptoms Reported Endocrine: Reports: No Symptoms Reported Misc: All systems neg except as marked - Vitals Vitals: Last Vital Signs Temp 37.0 C 07/09/17 13:05 Pulse 72 07/09/17 13:05 Resp 20 07/09/17 13:05 BP 143/56 07/09/17 13:05 Pulse Ox 98 07/09/17 13:05 - Exam Constitutional: Present: Alert, Cooperative, Elderly ENT Exam: Present: hard of hearing Neck: Present: supple Breasts: Present: Exam deferred Respiratory: Present: normal breath sounds, no respiratory distress Cardiovascular/Chest: Present: normal peripheral pulses, regular rate, rhythm Abdomen: Present: soft, nontender, nondistended /Rectal: Present: Exam deferred Extremity: Present: normal range of motion, no calf tenderness Skin Exam: Present: normal color, warm/dry, no cyanosis Assessment/Plan Plan Narrative: still confused on and off, especially at night. ? . on rocephin for UTI. sensitive per first culture. 2nd urine culture had no growth but this was done after iv abx were started. must treat bacturia in first culture as a precaution eventhough it is likely a contaminent, given his history of frequent UTI. suprapubic cath was changed this week by myself. also with orchitis/ epidimyitis - levaquin added for additional coverage. continue both abx. continue iv fluids for now as well. spoke with son and patient and both are agreeable to staying for the weekend for iv abx and iv fluids and possible discharge on tuesday07/11/17. - Problems/Diagnosis (1) Complicated UTI (urinary tract infection) Problem: Acute (2) Discharge planning issues Problem: Acute (3) Tenderness of scrotum Problem: Acute (4) UTI (urinary tract infection) Problem: Acute QualifierTitle: Urinary tract infection type: catheter-associated UTI Indwelling urinary catheter type: cystostomy catheter (5) HLD (hyperlipidemia) Problem: Chronic QualifierTitle: Hyperlipidemia type: mixed hyperlipidemia Qualified Code( s): E78.2 - Mixed hyperlipidemia (6) HTN (hypertension) Problem: Chronic QualifierTitle: Hypertension type: essential hypertension Qualified Code( s): I10 - Essential (primary) hypertension <Evan Bearden - Last Filed: 07/09/17 15:11> Subjective Subjective Narrative: All in agreement for parenteral antibiotics at least until antibiotics. Stable so far. Will most likely repeat bloodwork Tuesday morning. I personally directed all of our nurse practitioner hospitalist care for this patient. Objective - Vitals Vitals: Last Vital Signs Temp 37.0 C 07/09/17 13:05 Pulse 72 07/09/17 13:05 Resp 20 07/09/17 13:05 BP 143/56 07/09/17 13:05 Pulse Ox 98 07/09/17 13:05
[2017-07-09] MEDS: BIMATOPROST 25 DROP BTL EACHEYE SCH (20:59)
[2017-07-09] MEDS: SIMVASTATIN 40 MG TABLET PO SCH (21:00)
[2017-07-09] MEDS ORDERED: LORazepam 1 MG TABLET PO ONE (21:33)
[2017-07-10] MEDS: ACETAMINOPHEN 325 MG TABLET PO PRN ×2 (04:19→19:28)
[2017-07-10] MEDS: CARBIDOPA/LEVODOPA 25/100 1 TAB TABLET PO SCH ×5 (04:22→21:23)
--- NOTE | 2017-07-10 06:53 | PN ---
<ArieBritney - Last Filed: 07/10/17 07:00> Subjective - Date and Time Seen Date: 07/10/17 Time: 06:25 Subjective Narrative: Pt examined this am. Is resting calmly. Nursing reports being restless in the night and ativan gave relied towards morning hours. Is awaiting placement on Tuesday. No other acute events. Objective - Vitals Vitals: Last Vital Signs Temp 37.4 C 07/10/17 03:14 Pulse 58 L 07/10/17 03:14 Resp 18 07/10/17 03:14 BP 168/74 07/10/17 03:14 Pulse Ox 97 07/10/17 03:14 - Exam Constitutional: Present: Alert, Cooperative, No distress ENT Exam: Present: normal ENT inspection Neck: Present: full range of motion Breasts: Present: Exam deferred Respiratory: Present: lungs clear, No rales, No wheezing Cardiovascular/Chest: Present: regular rate, rhythm, no chest tenderness, no edema Abdomen: Present: Normal bowel sounds, soft, nontender /Rectal: Present: Exam deferred Extremity: Present: normal range of motion, non-tender, normal inspection, no pedal edema Skin Exam: Present: warm/dry, no cyanosis Lymphatic: Present: no adenopathy Neurologic: Present: no motor/sensory deficits, normal mood/affect, oriented x 3 Appearance: Present: appropriate appearance, appropriate insight Eye contact: Present: cooperative, good eye contact, normal speech Thoughts: Present: normal thought pattern, no apparent hallucination Assessment/Plan - Problems/Diagnosis (1) Orchitis and epididymitis Problem: Acute Narrative: Had scrotal swelling/redness. US of scrotum on 07/07/17 showed Epididymytis/ Orchitis. Started on Levaquin 500mg daily on 07/07. Recommended dose is 500mg po daily x 10 days. Rocephin stopped as it is used in STDs cases as chlamydia or gonorrhea. (2) Complicated UTI (urinary tract infection) Problem: Acute Narrative: This was not found to be the case as the urine sample was from unreplaced suprapubic cath for 3 months and therefore was likely a contaminant. The suprapubic cath was replaced and the final urine culture did not have any pathogens. (3) Altered mental status Problem: Acute Narrative: Has improved, since infection is under control and with IVF hydration. However, he likely has sundowner's from dementia as confusion, anxiety & restlessness has been setting in the late hours. Ativan PO at HS seems to be helping. (4) Discharge planning issues Problem: Acute Narrative: Awaiting placement on Tuesday. (5) Diabetes Problem: Chronic QualifierTitle: Diabetes mellitus type: type 2 Narrative: Stable- Acccuchecks AC/HS. Consistent Carb Diet. On Metformin & glipizide, SSI added for better control of blood sugars during infection. (6) A-fib Problem: Chronic QualifierTitle: Atrial fibrillation type: paroxysmal Qualified Code(s): I48.0 - Paroxysmal atrial fibrillation Narrative: Stable- On Aspirin & Metoprolol. Not on anticoagulation therapy due to high risk for falls from impaired gait caused by Parkinsonism. Place on remote telemetry. (7) Parkinsonism Problem: Chronic QualifierTitle: Parkinsonism type: Parkinson's disease Qualified Code(s) : G20 - Parkinson's disease (8) HTN (hypertension) Problem: Chronic QualifierTitle: Hypertension type: essential hypertension Qualified Code( s): I10 - Essential (primary) hypertension <Evan Bearden - Last Filed: 07/10/17 12:56> Subjective Subjective Narrative: I personally directed all of our nurse practitioner hospitalist care for this patient. Threatened to throw his tray this morning. Objective - Vitals Vitals: Last Vital Signs Temp 36.3 C L 07/10/17 07:09 Pulse 55 L 07/10/17 08:24 Resp 20 07/10/17 07:09 BP 188/79 07/10/17 08:24 Pulse Ox 98 07/10/17 07:09
[2017-07-10] MEDS: INSULIN LISPRO 100 UNITS/ML VIAL SC SCH ×4 (06:57→20:09)
[2017-07-10] MEDS: PANTOPRAZOLE SODIUM 20 MG TABLET.DR PO SCH (06:58)
[2017-07-10] MEDS: LEVOTHYROXINE SODIUM 50 MCG TABLET PO SCH (06:58)
[2017-07-10] MEDS: ASPIRIN 81 MG TABLET.DR PO SCH (08:18)
[2017-07-10] MEDS: DOCUSATE SODIUM 100 MG CAPSULE PO SCH (08:19)
[2017-07-10] MEDS: BETA CAROTENE 10000 UNIT PO SCH (08:19)
[2017-07-10] MEDS: metFORMIN HCL 500 MG TABLET PO SCH ×2 (08:20→16:30)
[2017-07-10] MEDS: OXYBUTYNIN CHLORIDE 5 MG TABLET PO SCH ×3 (08:20→16:31)
[2017-07-10] MEDS: glipiZIDE 10 MG TABLET PO SCH ×2 (08:21→16:31)
[2017-07-10] MEDS: CLOTRIMAZOLE/BETAMET DIPROP 15 APPL TUBE TP SCH ×2 (08:21→20:05)
[2017-07-10] MEDS: NYSTATIN 15 APPL BTL TP SCH ×2 (08:22→20:04)
[2017-07-10] MEDS: METOPROLOL TARTRATE 25 MG TABLET PO SCH ×2 (08:23→20:04)
[2017-07-10] MEDS: rOPINIRole HCL 0.5 MG TABLET PO SCH ×3 (08:24→16:32)
[2017-07-10] MEDS: LISINOPRIL 20 MG TABLET PO SCH ×2 (08:24→20:03)
[2017-07-10] MEDS: BETA-CAROTENE(A) W-C , E/MIN 1 TAB TABLET PO SCH (08:24)
[2017-07-10] MEDS: COQ10 100 MG PO SCH (08:25)
[2017-07-10] MEDS: SERTRALINE HCL 50 MG TABLET PO SCH (08:25)
[2017-07-10] MEDS: LEVOFLOXACIN 500 MG TABLET PO SCH (10:50)
[2017-07-10] MEDS: CEFEPIME HCL 1 GM in DEXTROSE 5 % IN WATER 100 ML IV SCH ×2 (19:27)
[2017-07-10] MEDS: SIMVASTATIN 40 MG TABLET PO SCH (20:03)
[2017-07-10] MEDS: BIMATOPROST 25 DROP BTL EACHEYE SCH (20:04)
[2017-07-11] MEDS: CARBIDOPA/LEVODOPA 25/100 1 TAB TABLET PO SCH ×5 (05:46→21:58)
[2017-07-11 06:03] LABS: Hematocrit 33.8 % (42.0-52.0); Hemoglobin 11.4 gm/dL (13.5-18.0); Mean Cell Volume 87.8 fl (78-100); Mean Corpuscular Hemoglobin 29.6 pg (27-31); Mean Corpuscular Hgb Conc 33.7 g/dl (32-36); Neutrophil # 6.4 K/mm3 (1.3-6.0); Neutrophil % 65.9 % (42-75.0); Platelet Count 185 K/mm3 (150-450); Red Blood Count 3.85 M/mm3 (4.7-6.0); White Blood Count 9.7 K/mm3 (4.0-10.5)
[2017-07-11] MEDS: INSULIN LISPRO 100 UNITS/ML VIAL SC SCH ×4 (08:01→20:47)
[2017-07-11] MEDS: metFORMIN HCL 500 MG TABLET PO SCH ×2 (08:05→17:21)
[2017-07-11] MEDS: SERTRALINE HCL 50 MG TABLET PO SCH (08:05)
[2017-07-11] MEDS: rOPINIRole HCL 0.5 MG TABLET PO SCH ×3 (08:05→17:21)
[2017-07-11] MEDS: LISINOPRIL 20 MG TABLET PO SCH ×2 (08:06→20:49)
[2017-07-11] MEDS: DOCUSATE SODIUM 100 MG CAPSULE PO SCH (08:06)
[2017-07-11] MEDS: ASPIRIN 81 MG TABLET.DR PO SCH (08:06)
[2017-07-11] MEDS: glipiZIDE 10 MG TABLET PO SCH ×2 (08:06→17:22)
[2017-07-11] MEDS: PANTOPRAZOLE SODIUM 20 MG TABLET.DR PO SCH (08:06)
[2017-07-11] MEDS: OXYBUTYNIN CHLORIDE 5 MG TABLET PO SCH ×3 (08:06→17:22)
[2017-07-11] MEDS: METOPROLOL TARTRATE 25 MG TABLET PO SCH ×2 (08:06→20:49)
[2017-07-11] MEDS: BETA-CAROTENE(A) W-C , E/MIN 1 TAB TABLET PO SCH (08:06)
[2017-07-11] MEDS: LEVOTHYROXINE SODIUM 50 MCG TABLET PO SCH (08:07)
[2017-07-11] MEDS: BETA CAROTENE 10000 UNIT PO SCH (08:12)
[2017-07-11] MEDS: CLOTRIMAZOLE/BETAMET DIPROP 15 APPL TUBE TP SCH ×2 (08:12→20:48)
[2017-07-11] MEDS: COQ10 100 MG PO SCH (08:13)
[2017-07-11] MEDS: NYSTATIN 15 APPL BTL TP SCH ×2 (08:13→20:49)
[2017-07-11 08:59] LABS: Anion Gap 12.8 mmol/L (6.8-13.8); BUN/Creatinine Ratio 18.9 (9.0-21.6); Calcium * 8.7 mg/dL (7.9-10.9); Carbon Dioxide 26.8 mmol/L (24-32.6); Potassium 3.6 mmol/L (3.4-4.6)
--- NOTE | 2017-07-11 09:07 | PN ---
Subjective - Date and Time Seen Date: 07/11/17 Time: 09:04 Subjective Narrative: still with intermittent confusion - worse at night. ? sundowners. Objective - Review of Systems Generalized/Overall Review: Reports: Fatigue EENTM: Reports: No Symptoms Reported Respiratory: Reports: No Symptoms Reported Cardiac: Reports: No Symptoms Reported Abdominal: Reports: No Symptoms Reported Genitourinary Symptoms: Reports: No Symptoms Reported Musculoskeletal Complaints: Reports: No Symptoms Reported Neurological: Reports: No Symptoms Reported Skin: Reports: No Symptoms Reported Endocrine: Reports: No Symptoms Reported Misc: All systems neg except as marked - Vitals Vitals: Last Vital Signs Temp 36.1 C L 07/11/17 07:40 Pulse 53 L 07/11/17 08:06 Resp 18 07/11/17 07:40 BP 148/64 07/11/17 08:06 Pulse Ox 99 07/11/17 07:40 - Abnormal Lab Findings Abnormal Lab Findings: Abnormal Lab Results 07/11/17 Range/Units 05:30 RBC 3.85 L (4.7-6.0) M/mm3 Hgb 11.4 L (13.5-18.0) gm/dL Hct 33.8 L (42.0-52.0) % MPV 10.0 H (6.0-9.5) fl Immature Gran % (Auto) 0.80 H (0.001-0.429) % Immature Gran # (Auto) 0.08 H (0.000-0.0310) K/mm3 Monocytes % 9.8 H (0.0-9) % Neutrophils # 6.4 H (1.3-6.0) K/mm3 - Exam Constitutional: Present: Cooperative, No distress, Elderly ENT Exam: Present: hard of hearing Neck: Present: supple Breasts: Present: Exam deferred Respiratory: Present: no respiratory distress, decreased breath sounds Cardiovascular/Chest: Present: normal peripheral pulses, regular rate, rhythm Abdomen: Present: soft, nontender, nondistended Extremity: Present: non-tender, normal inspection Skin Exam: Present: normal color, warm/dry, no cyanosis Assessment/Plan Plan Narrative: still confused on and off, especially at night. ? sundowners. 2nd urine culture did not grow anything. have had 2 days of normal WBC. will d/c IV abx for UTI. cont levaquin for orchitis / epidimyitis. continue iv fluids for now as well as patient does not have the best oral intake. currently awaiting placement. - Problems/Diagnosis (1) Complicated UTI (urinary tract infection) Problem: Acute (2) Discharge planning issues Problem: Acute (3) Tenderness of scrotum Problem: Acute (4) UTI (urinary tract infection) Problem: Acute Qualifiers: Urinary tract infection type: catheter-associated UTI Indwelling urinary catheter type: cystostomy catheter (5) HLD (hyperlipidemia) Problem: Chronic Qualifiers: Hyperlipidemia type: mixed hyperlipidemia Qualified Code(s): E78.2 - Mixed hyperlipidemia (6) HTN (hypertension) Problem: Chronic Qualifiers: Hypertension type: essential hypertension Qualified Code(s): I10 - Essential (primary) hypertension
[2017-07-11] MEDS: CEFEPIME HCL 1 GM in DEXTROSE 5 % IN WATER 100 ML IV SCH ×2 (09:33)
[2017-07-11] MEDS: POTASSIUM CHLORIDE 10 MEQ in NORMAL SALINE 1,000 ML IV SCH ×2 (10:31→20:44)
[2017-07-11] MEDS: ACETAMINOPHEN 325 MG TABLET PO PRN (12:45)
[2017-07-11] MEDS: LEVOFLOXACIN 500 MG TABLET PO SCH (12:46)
[2017-07-11] MEDS: SIMVASTATIN 40 MG TABLET PO SCH (20:48)
[2017-07-11] MEDS: BIMATOPROST 25 DROP BTL EACHEYE SCH (20:48)
[2017-07-12] MEDS ORDERED: DEXTROSE 50%-WATER 50 ML SYRG IV ONE (00:32)
[2017-07-12] MEDS ORDERED: DEXTROSE 50%-WATER 50 ML SYRG ONE (00:34)
[2017-07-12] MEDS: CARBIDOPA/LEVODOPA 25/100 1 TAB TABLET PO SCH (04:58)
[2017-07-12 06:36] VITALS: BP 136/66
[2017-07-12] MEDS: INSULIN LISPRO 100 UNITS/ML VIAL SC SCH (06:56)
[2017-07-12] MEDS: PANTOPRAZOLE SODIUM 20 MG TABLET.DR PO SCH (06:57)
[2017-07-12] MEDS: LEVOTHYROXINE SODIUM 50 MCG TABLET PO SCH (06:57)
[2017-07-12] MEDS: POTASSIUM CHLORIDE 10 MEQ in NORMAL SALINE 1,000 ML IV SCH (06:59)
--- NOTE | 2017-07-12 08:05 | DS ---
(1) Tenderness of scrotum Diagnosis(s): orchitis/epididymitis Problem: Acute (2) Altered mental status Diagnosis(s): likely beginning dementia. Problem: Acute (3) UTI (urinary tract infection) Problem: Resolved Qualifiers: Urinary tract infection type: catheter-associated UTI Indwelling urinary catheter type: cystostomy catheter (4) A-fib Problem: Chronic Qualifiers: Atrial fibrillation type: paroxysmal Qualified Code(s): I48.0 - Paroxysmal atrial fibrillation (5) Diabetes Problem: Chronic Qualifiers: Diabetes mellitus type: type 2 (6) HLD (hyperlipidemia) Problem: Chronic Qualifiers: Hyperlipidemia type: mixed hyperlipidemia Qualified Code(s): E78.2 - Mixed hyperlipidemia (7) HTN (hypertension) Problem: Chronic Qualifiers: Hypertension type: essential hypertension Qualified Code(s): I10 - Essential (primary) hypertension (8) Parkinsonism Problem: Chronic Qualifiers: Parkinsonism type: Parkinson's disease Qualified Code(s): G20 - Parkinson' s disease Description of Stay: Kaushal Nielsen is a 81-yr-old WM with a PMH of:A-fib, BPH, CAD, DMII, HLDM HTN, Parkinsonism and Restless Leg Syndrome who was admitted on 07/05/2017.. History was provided by the pt's son Nitza, as he was lethargic. The pt has been living at the [facility] for the past 1.5 yrs due to debilitation from the Parkinson's disease. He had struggled with urge urinary incontinence for a while and finally saw a Urologist at the [facility] who recommended alternative treatments. He ended up opting for a Suprapbuic catheter. He had the procedure on 04/01/17 and since then, intza states that pt has had 4 recurrent episodes of UTIs. He states that the suprapubic catheter was supposed to be changed every 30 days according to the recommendations by the Urologist. However, that was not being done due to a miscommunication between him, the Urologist and the Assisted living facility staff. Nitza was acting disoriented on the day of admission, had a fever and could not walk. He also reported that Mr. Nielsen has been getting weaker, his mobility has decreased and his medications for Parkinsonism were increased recently in the hopes of improving his walking instabilities. At the ED, he was febrile with a temp of 39.1. His WBC was elevated at 16,300 with a left shift. The UA showed presence of a UTI. He was admitted inpatient due to a possible complicated UTI and was at risk for failing treatment outpatient. He already has postural instability from the Parkinson's and along with weakness from the presenting illness, he has a significant risk of injury and can suffer further loss of independent function if discharged too soon. He was started on IV antibiotics. His first UCS wass polymicrobial and likely due to contmaination as it was taken from his 3 month catheter. His second UCS showed no growth. He did complain with scrotal tenderness this time and US showed orchitis/epididymitis and Levaquin was added. His WBC went back to normal. He is stable to be discharged to [place] for more PT/OT. Will keep him on iral levaquin x 10 days for his orchits/epididymitis and whne much better will do a MMSE. Follow up with me in 2 weeks. Procedures Performed: none Discharge Disposition: [facility] Disposition: Other health care facility Condition: Fair Discharge Activity: Activity as tolerated Discharge Diet: Consistent carbs Discharge Level of Care:: SNF - [facility] Referrals: Delaney Robledo MD [Primary Care Provider] - Additional Patient Instructions (free text): [facility]OT[facility] If discharged back to [facility] after SNF, please make an appointment to see your PCP. Prescriptions (Any new or edited meds): Levofloxacin [Levaquin] 500 mg PO DAILY 10 Days #30 tab Complete Home Medications List: Complete Home Medication List: Aspirin [Aspirin EC] 81 mg PO DAILY 09/30/15 Carbidopa/Levodopa [Carbidopa-Levo 25-100 mg Odt] 2.5 tab PO 0500 09/30/15 Levothyroxine Sodium [Synthroid] 50 mcg PO DAILY 09/30/15 Lisinopril [Zestril] 20 mg PO DAILY 09/30/15 Simvastatin [Zocor] 40 mg PO HS 09/30/15 Ubidecarenone [Coq10] 100 mg PO DAILY 09/30/15 glipiZIDE [Glipizide] 20 mg PO BIDWM 09/30/15 metFORMIN HCL [Glucophage] 1,250 mg PO BIDWM 09/30/15 Docusate Sodium 100 mg PO DAILY 04/18/17 Omeprazole [Prilosec] 20 mg PO DAILY 04/18/17 Sertraline HCl 25 mg PO DAILY 04/18/17 Acetaminophen [Tylenol] 650 mg PO Q6H PRN #60 tablet 04/22/17 Beta-Carotene(A) W-C , E/Min [Ocuvite] 1 tab PO DAILY #30 tablet 04/22/17 Metoprolol Tartrate [Lopressor] 25 mg PO BID #30 tablet 04/22/17 Beta-Carotene [Beta Carotene] 10,000 unit PO DAILY 06/09/17 Bimatoprost [Lumigan 0.01% Ophthalmic Solution] 1 drop EACHEYE HS 06/09/17 Calcium Carbonate [Tums] 500 mg PO TID PRN 06/09/17 Clotrimazole/Betamethasone Dip [Clotrimazole-Betamethasone Crm] 15 gm TP BID rOPINIRole HCL [Requip] 0.5 mg PO TID 06/09/17 Oxybutynin Chloride [Ditropan] 5 mg PO TID 06/10/17 Carbidopa/Levodopa [Carbidopa-Levodopa 25-100 Tab] 2 each PO 1000 07/05/17 Carbidopa/Levodopa [Carbidopa-Levodopa 25-100 Tab] 2 each PO 1500 07/05/17 Carbidopa/Levodopa [Carbidopa-Levodopa 25-100 Tab] 2 each PO 1900 07/05/17 Carbidopa/Levodopa [Carbidopa-Levodopa 25-100 Tab] 2 each PO 2200 07/05/17 Levofloxacin [Levaquin] 500 mg PO DAILY 10 Days #30 tab 07/08/17 metFORMIN HCL [Glucophage] 250 mg PO BIDWM tablet 07/08/17 Nystatin [Mycostatin Powder] 1 appl TP BID btl 07/12/17
[2017-07-12] MEDS: metFORMIN HCL 500 MG TABLET PO SCH (08:15)
[2017-07-12] MEDS: METOPROLOL TARTRATE 25 MG TABLET PO SCH (08:15)
[2017-07-12] MEDS: SERTRALINE HCL 50 MG TABLET PO SCH (08:15)
[2017-07-12] MEDS: LISINOPRIL 20 MG TABLET PO SCH (08:15)
[2017-07-12] MEDS: OXYBUTYNIN CHLORIDE 5 MG TABLET PO SCH (08:15)
[2017-07-12] MEDS: BETA CAROTENE 10000 UNIT PO SCH (08:16)
[2017-07-12] MEDS: glipiZIDE 10 MG TABLET PO SCH (08:16)
[2017-07-12] MEDS: DOCUSATE SODIUM 100 MG CAPSULE PO SCH (08:16)
[2017-07-12] MEDS: ASPIRIN 81 MG TABLET.DR PO SCH (08:16)
[2017-07-12] MEDS: rOPINIRole HCL 0.5 MG TABLET PO SCH (08:16)
[2017-07-12] MEDS: NYSTATIN 15 APPL BTL TP SCH (08:16)
[2017-07-12] MEDS: CLOTRIMAZOLE/BETAMET DIPROP 15 APPL TUBE TP SCH (08:16)
[2017-07-12] MEDS: BETA-CAROTENE(A) W-C , E/MIN 1 TAB TABLET PO SCH (08:16)
[2017-07-12] MEDS: COQ10 100 MG PO SCH (08:17)
== END 2017-07-12 10:25 | DRG 700 ==
LOC: ER 16:36 → MS 18:19
PROVIDERS: ADMIT Nurse Practitioner Critical Care Medicine; ATTEND Internal Medicine
DX: T83.511A Infection and inflammatory reaction due to indwelling urethral catheter, initial encounter (principal); N39.0 Urinary tract infection, site not specified; N45.3 Epididymo-orchitis; R41.82 Altered mental status, unspecified; I48.0 Paroxysmal atrial fibrillation; I10 Essential (primary) hypertension; E11.9 Type 2 diabetes mellitus without complications; E78.2 Mixed hyperlipidemia; G20 Parkinson's disease; F02.80 Dementia in other diseases classified elsewhere, unspecified severity, without behavioral disturbance, psychotic disturbance, mood disturbance, and anxiety; R53.1 Weakness; Z79.82 Long term (current) use of aspirin; Z23 Encounter for immunization
CPT/HCPCS: 36415; 71010; 76870; 80048; 80053; 81001; 83605; 83735; 85007; 85025; 87040; 87077; 87081; 87086; 87186; 90686; 92526; 92610; 96365; 97110; 97116; 97163; 97166; 97530; 97535; 99285; G0008; J2405

== ENCOUNTER 2017-08-08 21:20 | Emergency (ER) | payer MEDICARE ==
[2017-08-08] MEDS ORDERED: MORPHINE SULFATE 2 MG/ML DISP.SYRIN IV ONE (21:26)
[2017-08-08] MEDS ORDERED: MORPHINE SULFATE 2 MG/ML DISP.SYRIN ONE (21:40)
[2017-08-08 21:44] LABS: Hematocrit 34.1 % (42.0-52.0); Hemoglobin 11.4 gm/dL (13.5-18.0); Mean Corpuscular Hemoglobin 29.8 pg (27-31); Mean Corpuscular Hgb Conc 33.4 g/dl (32-36); Mean Platelet Volume 10.5 fl (6.0-9.5); Neutrophil # 6.7 K/mm3 (1.3-6.0); Neutrophil % 71.5 % (42-75.0); Platelet Count 156 K/mm3 (150-450); Red Blood Count 3.83 M/mm3 (4.7-6.0); White Blood Count 9.3 K/mm3 (4.0-10.5)
[2017-08-08 22:15] LABS: Urine Bilirubin Negative (NEGATIVE); Urine Blood 50 /ul (NEGATIVE); Urine Ketone 5 mg/dL (NEGATIVE); Urine Nitrite Negative (NEGATIVE); Urine Protein 30 mg/dL (NEGATIVE); Urine Urobilinogen Normal (NORMAL)
[2017-08-08 22:24] LABS: Urine Appearance Turbid; Urine Color Yellow; Urine WBC 25-50 /hpf (0-5)
[2017-08-08 22:25] LABS: Urine Bacteria None Seen; Urine Yeast Many - 3+
--- NOTE | 2017-08-08 23:22 | ERNOTE ---
Trauma/Assault HPI - General Stated Complaint: FALLS Time Seen by Provider: 08/08/17 21:26 - Immun/Allergies/Home Medications Immunizations: IMMUNIZATION HX Immunizations Up to Date Yes History of Influenza Vaccine Yes Hx Pneumococcal Vaccination More Information Required Allergies/Adverse Reactions: Allergies No Known Allergies Allergy (Verified 08/08/17 21:28) Home Medications: HOME MEDICATIONS Aspirin [Aspirin EC] 81 mg PO DAILY 09/30/15 [Last Taken Unknown] Carbidopa/Levodopa [Carbidopa-Levo 25-100 mg Odt] 2.5 tab PO 0500 09/30/15 [ Last Taken Unknown] Levothyroxine Sodium [Synthroid] 50 mcg PO DAILY 09/30/15 [Last Taken Unknown] Lisinopril [Zestril] 20 mg PO DAILY 09/30/15 [Last Taken Unknown] glipiZIDE [Glipizide] 20 mg PO BIDWM 09/30/15 [Last Taken Unknown] metFORMIN HCL [Glucophage] 1,250 mg PO BIDWM 09/30/15 [Last Taken Unknown] Docusate Sodium 100 mg PO DAILY 04/18/17 [Last Taken Unknown] Omeprazole [Prilosec] 20 mg PO DAILY 04/18/17 [Last Taken Unknown] Sertraline HCl 25 mg PO DAILY 04/18/17 [Last Taken Unknown] Acetaminophen [Tylenol] 650 mg PO Q6H PRN #60 tablet 04/22/17 [Last Taken Unknown] Metoprolol Tartrate [Lopressor] 25 mg PO BID #30 tablet 04/22/17 [Last Taken Unknown] Bimatoprost [Lumigan 0.01% Ophthalmic Solution] 1 drop EACHEYE HS 06/09/17 [ Last Taken Unknown] Calcium Carbonate [Tums] 500 mg PO TID PRN 06/09/17 [Last Taken Unknown] Clotrimazole/Betamethasone Dip [Clotrimazole-Betamethasone Crm] 15 gm TP BID [Last Taken Unknown] rOPINIRole HCL [Requip] 0.5 mg PO DAILY 06/09/17 [Last Taken Unknown] Oxybutynin Chloride [Ditropan] 5 mg PO TID 06/10/17 [Last Taken Unknown] Carbidopa/Levodopa [Carbidopa-Levodopa 25-100 Tab] 2 each PO 1000 07/05/17 [ Last Taken Unknown] Carbidopa/Levodopa [Carbidopa-Levodopa 25-100 Tab] 2 each PO 1500 07/05/17 [ Last Taken Unknown] Carbidopa/Levodopa [Carbidopa-Levodopa 25-100 Tab] 2 each PO 1900 07/05/17 [ Last Taken Unknown] Carbidopa/Levodopa [Carbidopa-Levodopa 25-100 Tab] 2 each PO 2200 07/05/17 [ Last Taken Unknown] metFORMIN HCL [Glucophage] 250 mg PO BIDWM tablet 07/08/17 [Last Taken Unknown] Nystatin [Mycostatin Powder] 1 appl TP BID btl 07/12/17 [Last Taken Unknown] - History of Present Illness Narrative: This is an 81-year-old male who comes to the emergency department after having 4 falls today in his group home. Patient has Parkinson's disease. We are not sure if he actually fell 4 times but this was reported by the group home staff. Per the patient's son he often will slide out of bed and get on his knees and move around. He definitely did fall and strike his forehead this evening. No vomiting or loss of consciousness. The patient who is verbal and interactive says he does not remember falling earlier today. He does from this fall. She was leaning forward in his wheelchair trying to pick something up off the ground when he fell forward. Review of Systems - Review of Systems Constitutional: Present: no symptoms reported EYE: Present: no symptoms reported ENT: Present: no symptoms reported Respiratory: Present: no symptoms reported Cardiology: Present: no symptoms reported Gastrointestinal/Abdominal: Present: no symptoms reported Genitourinary: Present: no symptoms reported Musculoskeletal: Present: no symptoms reported Skin: Present: other Neurological: Present: headache Endocrine: Present: no symptoms reported - abrasions to the forehead - Patient's Past Medical History Patient History - Medical: Anxiety, Diabetes Type 2, Depression, Hypothyroidism , UTI'S, Other Patient History - Cardiac/Respiratory: Atrial Fibrillation, Coronary Heart Disease, Hypertension, Hyperlipidemia Patient History - Cancer: No Hx of Cancer Patient History - Surgical Procedures: Cataracts, Colonoscopy, Other, Urology Patient History - Other: None - Family History Mother Family History - Medical: , Other Family History - Cardiac/Respiratory: No pertinent hx Family History - Cancer: No pertinent family hx Father Family History - Medical: , No pertinent hx - Social History Living Situations: group home Abuse History: No History of abuse Psych History: No pertinent hx Smoking Status: Former smoker Have you smoked in the past 12 months: No Do you dip or chew tobacco: No Alcohol Use: none Drug Use: none - Immunizations Immunizations Up to Date: Yes Hx Pneumococcal Vaccination: More Information Required to Determine History of Influenza Vaccine: Yes Physical Exam - Physical Exam General Appearance: Present: wd/wn, alert, no apparent distress Head Exam: Present: other - patient has 2 abrasions to the forehead with some swelling. 2 x 3 cm and 4 x 4 centimeters Ears, Nose, Throat: Present: normal ENT inspection, normal pharynx Neck: Present: normal inspection, nontender Respiratory: Present: no respiratory distress, normal breath sounds, no accessory muscle use, chest nontender, lungs clear Cardiovascular/Chest: Present: regular rate, rhythm, no murmur, normal peripheral pulses Gastrointestinal/Abdominal: Present: normal bowel sounds, nontender, nondistended, soft, no organomegaly Back Exam: Present: normal inspection, normal range of motion, no CVA tenderness , no vertebral tenderness Extremity Exam: Present: normal inspection, non-tender, normal range of motion, no edema Neurological Exam: Present: alert, oriented, normal mood/affect, no motor/ sensory deficits Skin Exam: Present: warm/dry, other - abrasions as described in the head exam Lymphatic Exam: Present: no adenopathy ED Progress - Results and Orders Patient's Lab Results:: I have reviewed the patient's lab results. - Vital Signs Patient's Vital Signs:: I have reviewed the patient's vital signs. Vital Signs: Vital Signs 08/08/17 08/08/17 08/08/17 21:20 21:45 22:10 Temperature 37.1 C Pulse Rate 75 60 55 L Respiratory 14 16 15 Rate Blood Pressure 143/61 143/61 156/67 O2 Sat by Pulse 97 98 98 Oximetry 08/08/17 22:49 Temperature Pulse Rate 53 L Respiratory 15 Rate Blood Pressure 156/67 O2 Sat by Pulse 99 Oximetry - CT/Ultrasound CT/Ultrasound Narrative: CT of the head fails to demonstrate any acute intracranial abnormality - Progress/Reassessment Chief Complaint: Fall Departure Clinical Impression: Fall, Abrasion - Departure [facility] Condition: Fair Instructions: Fall Prevention in the Home, [id number] Additional Instructions: As we discussed I do not see any signs of any injuries to his brain. There is no fracture. There is no bleeding in his brain. He does have those 2 abrasions on his forehead. These will likely be sore for several days. Just keep them covered. They should scab over and a few days and then heal within a week. [facility] family doctor and set up a follow-up appointment. Return to the ER for new concerning symptoms
[2017-08-09 00:39] VITALS: BP 150/66
== END 2017-08-08 23:30 ==
LOC: ER 21:20
DX: S00.81XA Abrasion of other part of head, initial encounter (principal); W05.0XXA Fall from non-moving wheelchair, initial encounter; Y92.129 Unspecified place in nursing home as the place of occurrence of the external cause; Z87.891 Personal history of nicotine dependence; E03.9 Hypothyroidism, unspecified; F32.9 Major depressive disorder, single episode, unspecified; I10 Essential (primary) hypertension; I50.9 Heart failure, unspecified; I48.91 Unspecified atrial fibrillation; G20 Parkinson's disease; Z79.899 Other long term (current) drug therapy

== ENCOUNTER 2017-08-24 13:19 | Observation (INO) | payer MEDICARE ==
[2017-08-24] MEDS ORDERED: NORMAL SALINE 1,000 ML IV ONE ×2 (13:33→15:41)
[2017-08-24 14:00] LABS: Hematocrit 35.4 % (42.0-52.0); Hemoglobin 11.5 gm/dL (13.5-18.0); Mean Cell Volume 91.5 fl (78-100); Mean Corpuscular Hemoglobin 29.7 pg (27-31); Mean Corpuscular Hgb Conc 32.5 g/dl (32-36); Mean Platelet Volume 10.4 fl (6.0-9.5); Neutrophil # 5.7 K/mm3 (1.3-6.0); Neutrophil % 66.4 % (42-75.0); Platelet Count 184 K/mm3 (150-450); Red Blood Count 3.87 M/mm3 (4.7-6.0); Red Cell Distribution Width 13.2 % (11.5-14.0); White Blood Count 8.5 K/mm3 (4.0-10.5)
[2017-08-24 14:44] LABS: ALT 13 U/L (19-67); AST 17 U/L (0-48); Albumin * 3.3 gm/dl (3.4-5.0); Alkaline Phosphatase * 65 U/L (50-170); BUN/Creatinine Ratio 20.8 (9.0-21.6); Bilirubin, Total 0.4 mg/dL (0.0-1.1); Blood Urea Nitrogen 20 mg/dL (6-23); Calcium * 8.8 mg/dL (7.9-10.9); Carbon Dioxide 27.6 mmol/L (24-32.6); Chloride 99 mmol/L (97-106); Glucose * 287 mg/dL (70-110); Potassium 4.6 mmol/L (3.4-4.6); Sodium 137 mmol/L (132-142); Total Protein 6.9 gm/dL (6.2-8.2)
[2017-08-24 14:52] LABS: Troponin I Less than 0.017 ng/ml (0.00-0.10)
[2017-08-24 15:05] LABS: Magnesium 1.6 mg/dL (1.2-2.8)
[2017-08-24 15:11] LABS: Urine Bilirubin Negative (NEGATIVE); Urine Ketone Negative (NEGATIVE); Urine Nitrite Negative (NEGATIVE); Urine Protein Negative (NEGATIVE); Urine Urobilinogen Normal (NORMAL); Urine pH 6.5 pH (5.0-7.0)
[2017-08-24 15:27] LABS: Urine Appearance Cloudy; Urine Blood 5 /ul (NEGATIVE); Urine Color Yellow
[2017-08-24 15:28] LABS: Urine Bacteria 1+; Urine RBC None Seen /hpf (0-5)
--- NOTE | 2017-08-24 15:42 | ERNOTE ---
Neuro HPI ER Record Presenting Symptoms: other - fairly suddenly the patient became unresponsive, he was apparently at his baseline of breakfast and then became profoundly unresponsive even to sternal rub Time Seen by Provider: 08/24/17 13:24 Source: family, EMS Exam Limitations: clinical condition Immunizations: IMMUNIZATION HX Immunizations Up to Date Yes History of Influenza Vaccine Yes Hx Pneumococcal Vaccination Yes Allergies/Adverse Reactions: Allergies Allergy/AdvReac Type Severity Reaction Status Date / Time No Known Allergies Allergy Verified 08/24/17 13:25 Home Medications: HOME MEDICATIONS Aspirin [Aspirin EC] 81 mg PO DAILY 09/30/15 [Last Taken Unknown] Carbidopa/Levodopa [Carbidopa-Levo 25-100 mg Odt] 2.5 tab PO 0500 09/30/15 [ Last Taken Unknown] Levothyroxine Sodium [Synthroid] 50 mcg PO DAILY 09/30/15 [Last Taken Unknown] Lisinopril [Zestril] 20 mg PO DAILY 09/30/15 [Last Taken Unknown] glipiZIDE [Glipizide] 20 mg PO BIDWM 09/30/15 [Last Taken Unknown] metFORMIN HCL [Glucophage] 1,250 mg PO BIDWM 09/30/15 [Last Taken Unknown] Docusate Sodium 100 mg PO DAILY 04/18/17 [Last Taken Unknown] Omeprazole [Prilosec] 20 mg PO DAILY 04/18/17 [Last Taken Unknown] Sertraline HCl 25 mg PO DAILY 04/18/17 [Last Taken Unknown] Acetaminophen [Tylenol] 650 mg PO Q6H PRN #60 tablet 04/22/17 [Last Taken Unknown] Metoprolol Tartrate [Lopressor] 25 mg PO BID #30 tablet 04/22/17 [Last Taken Unknown] Bimatoprost [Lumigan 0.01% Ophthalmic Solution] 1 drop EACHEYE HS 06/09/17 [ Last Taken Unknown] Calcium Carbonate [Tums] 500 mg PO TID PRN 06/09/17 [Last Taken Unknown] Clotrimazole/Betamethasone Dip [Clotrimazole-Betamethasone Crm] 15 gm TP BID [Last Taken Unknown] rOPINIRole HCL [Requip] 0.5 mg PO DAILY 06/09/17 [Last Taken Unknown] Oxybutynin Chloride [Ditropan] 5 mg PO TID 06/10/17 [Last Taken Unknown] Carbidopa/Levodopa [Carbidopa-Levodopa 25-100 Tab] 2 each PO 1000 07/05/17 [ Last Taken Unknown] Carbidopa/Levodopa [Carbidopa-Levodopa 25-100 Tab] 2 each PO 1500 07/05/17 [ Last Taken Unknown] Carbidopa/Levodopa [Carbidopa-Levodopa 25-100 Tab] 2 each PO 1900 07/05/17 [ Last Taken Unknown] Carbidopa/Levodopa [Carbidopa-Levodopa 25-100 Tab] 2 each PO 2200 07/05/17 [ Last Taken Unknown] metFORMIN HCL [Glucophage] 250 mg PO BIDWM tablet 07/08/17 [Last Taken Unknown] Nystatin [Mycostatin Powder] 1 appl TP BID btl 07/12/17 [Last Taken Unknown] - History of Present Illness Narrative: As noted, patient remains unresponsive even to sternal rub Onset: sudden onset Severity: severe - Character of Deficits Baseline Cognition: Present: alert, oriented x 4 - although possible early Lewy body dementia Prior Treament: Reports: recently seen, treated by physician Review of Systems - Review of Systems Constitutional: Present: See HPI, other - unable to obtain due to the patient's comatose status EYE: Present: no symptoms reported ENT: Present: no symptoms reported Respiratory: Present: no symptoms reported Cardiology: Present: no symptoms reported Gastrointestinal/Abdominal: Present: no symptoms reported Genitourinary: Present: no symptoms reported Musculoskeletal: Present: no symptoms reported Skin: Present: no symptoms reported Neurological: Present: no symptoms reported Endocrine: Present: no symptoms reported Hematologic/Lymphatic: Present: no symptoms reported Psych: Present: no symptoms reported - Patient's Past Medical History Patient History - Medical: Anxiety, Diabetes Type 2, Depression, Hypothyroidism , UTI'S, Other Patient History - Cardiac/Respiratory: Atrial Fibrillation, Coronary Heart Disease, Hypertension, Hyperlipidemia Patient History - Cancer: No Hx of Cancer Patient History - Surgical Procedures: Cataracts, Colonoscopy, Other, Urology Patient History - Other: None - Family History Mother Family History - Medical: , Other Family History - Cardiac/Respiratory: No pertinent hx Family History - Cancer: No pertinent family hx Father Family History - Medical: , No pertinent hx - Social History Living Situations: assisted living Abuse History: No History of abuse Psych History: No pertinent hx - Immunizations Immunizations Up to Date: Yes Hx Pneumococcal Vaccination: Yes History of Influenza Vaccine: Yes Physical Exam - Physical Exam General Appearance: Present: other - unable to arouse Head Exam: Present: normal inspection, no evidence of injury Eye Exam: Abnormal pupil: bilateral - constricted pupils Ears, Nose, Throat: Present: normal ENT inspection, H, normal pharynx Neck: Present: normal inspection Respiratory: Present: no respiratory distress, normal breath sounds, no accessory muscle use, lungs clear Cardiovascular/Chest: Present: regular rate, rhythm, no murmur, normal peripheral pulses Gastrointestinal/Abdominal: Present: normal bowel sounds, nondistended, soft, no organomegaly Rectal Exam: Present: deferred Male Genitals Exam: Present: deferred Extremity Exam: Present: normal inspection, no edema Neurological Exam: Present: other - patient appears comatose Skin Exam: Present: normal color, warm/dry Lymphatic Exam: Present: no adenopathy Melissa Coma Scale - Assess Eye Opening: None Motor: None Verbal: None - patient appears to be in a coma and is not responsive to anything including sternal rub - Total Coma Scale Total: 3 ED Progress - Results and Orders Patient's Lab Results:: I have reviewed the patient's lab results. - Vital Signs Patient's Vital Signs:: I have reviewed the patient's vital signs. Vital Signs: Vital Signs 08/24/17 08/24/17 08/24/17 13:20 13:25 13:29 Pulse Rate 45 L 45 L 45 L Respiratory 11 L 11 L Rate Blood Pressure 114/57 108/53 O2 Sat by Pulse 88 L 93 Oximetry 08/24/17 08/24/17 08/24/17 13:30 13:45 14:00 Pulse Rate 43 L 43 L 48 L Respiratory 14 11 L 11 L Rate Blood Pressure 108/53 114/55 120/62 O2 Sat by Pulse 100 100 100 Oximetry - EKG EKG: NSR - X-Ray X-Ray #1 X-Ray: chest Interpretation: Reviewed by me - CT/Ultrasound CT/Ultrasound Narrative: CT of the head was reviewed by me - Progress/Reassessment Chief Complaint: Altered Mental Status Progress:: Unchanged Plan - Plan Plan: Patient is not only DNR prior to this event he had also requested that no feeding tube be used. It was his request that comfort measures be undertaken. Departure Clinical Impression: Altered mental status Qualifiers: Altered mental status type: coma Coma depth: [place] coma 3-8 Coma timing: unspecified coma timing Qualified Code(s): R40.2430 - [place] coma scale score 3 -8, unspecified time - Departure Disposition: [facility] Condition: Poor
--- NOTE | 2017-08-24 17:21 | HP ---
Chief Complaint - Chief Complaint Date of Service: 08/24/17 Time of Service: 16:47 Chief Complaint: unresponsiveness History of Present Illness: Kaushal Davey, is an 81-year-old white male, resident of the [facility], with previous medical history of hyperlipidemia, hypertension, hypothyroidism, Parkinson's disease, atrial fibrillation, who was admitted on because of unresponsiveness. As per his son he was scheduled to bring him to [facility], Urology Department for his urinary incontinence status post suprapubic catheter placement but he was called around 11 in the morning and told that his father was unresponsive. The nursing personnel in [facility] told him that he was fine and ate his breakfast early this morning. Before 11 he was in his recliner, sleeping and they woke him up to give him his medications ( 0xybutinin and carbidopalevopdopa). A little bit later on they tried to wake him up again to dress him up up to go with the son to [place] but patient was unresponsive even to sternal rub. His pupils were constricted and sluggishly reactive to light as per son. He was then brought to the emergency room where workup were all within normal limits including a head CT scan which showed no acute intracranial process. He remained unresponsive to sternal rub. His vital signs were stable he was then admitted for observation and we'll schedule him an MRI in the morning as well as an EEG. We'll get neurology consult if they are here tomorrow. As per son his requip was decreased from 3 tabs PO qd to 1 tab PO qd, 3-4 weeks ago by Neurologyand his sertraline was increased to 50 mg from 25 mg last week. - Patient's Past Medical History Patient History - Medical: Anxiety, Diabetes Type 2, Depression, Hypothyroidism , UTI'S, Other Patient History - Cardiac/Respiratory: Atrial Fibrillation, Coronary Heart Disease, Hypertension, Hyperlipidemia Patient History - Cancer: No Hx of Cancer Patient History - Surgical Procedures: Cataracts, Colonoscopy, Other, Urology Patient History - Other: None - Family History Mother Family History - Medical: , Other Family History - Cardiac/Respiratory: No pertinent hx Family History - Cancer: No pertinent family hx Father Family History - Medical: , No pertinent hx - Social History Living Situations: assisted living Abuse History: No History of abuse Psych History: No pertinent hx - Immunizations Immunizations Up to Date: Yes Hx Pneumococcal Vaccination: Yes History of Influenza Vaccine: Yes Review Of Systems (GEN) - Review of Systems Misc: All systems neg except as marked - unable to obtain due to mental status change Immunizations: IMMUNIZATION HX Immunizations Up to Date Yes History of Influenza Vaccine Yes Hx Pneumococcal Vaccination Yes Allergies/Adverse Reactions: Allergies Allergy/AdvReac Type Severity Reaction Status Date / Time No Known Allergies Allergy Verified 08/24/17 13:25 Home Medications: HOME MEDICATIONS Aspirin [Aspirin EC] 81 mg PO DAILY 09/30/15 [Last Taken Unknown] Carbidopa/Levodopa [Carbidopa-Levo 25-100 mg Odt] 2.5 tab PO 0500 09/30/15 [ Last Taken Unknown] Levothyroxine Sodium [Synthroid] 50 mcg PO DAILY 09/30/15 [Last Taken Unknown] Lisinopril [Zestril] 20 mg PO DAILY 09/30/15 [Last Taken Unknown] glipiZIDE [Glipizide] 20 mg PO BIDWM 09/30/15 [Last Taken Unknown] Docusate Sodium 100 mg PO DAILY 04/18/17 [Last Taken Unknown] Omeprazole [Prilosec] 20 mg PO DAILY 04/18/17 [Last Taken Unknown] Sertraline HCl 50 mg PO DAILY 04/18/17 [Last Taken Unknown] Acetaminophen [Tylenol] 650 mg PO Q6H PRN #60 tablet 04/22/17 [Last Taken Unknown] Metoprolol Tartrate [Lopressor] 25 mg PO BID #30 tablet 04/22/17 [Last Taken Unknown] Bimatoprost [Lumigan 0.01% Ophthalmic Solution] 1 drop EACHEYE HS 06/09/17 [ Last Taken Unknown] Calcium Carbonate [Tums] 500 mg PO TID PRN 06/09/17 [Last Taken Unknown] Clotrimazole/Betamethasone Dip [Clotrimazole-Betamethasone Crm] 15 gm TP BID [Last Taken Unknown] rOPINIRole HCL [Requip] 0.5 mg PO DAILY 06/09/17 [Last Taken Unknown] Oxybutynin Chloride [Ditropan] 5 mg PO TID 06/10/17 [Last Taken Unknown] Carbidopa/Levodopa [Carbidopa-Levodopa 25-100 Tab] 2 each PO 1000 07/05/17 [ Last Taken Unknown] Carbidopa/Levodopa [Carbidopa-Levodopa 25-100 Tab] 2 each PO 1500 07/05/17 [ Last Taken Unknown] Carbidopa/Levodopa [Carbidopa-Levodopa 25-100 Tab] 2 each PO 1900 07/05/17 [ Last Taken Unknown] Carbidopa/Levodopa [Carbidopa-Levodopa 25-100 Tab] 2 each PO 2200 07/05/17 [ Last Taken Unknown] Vit C/E/Zn/Coppr/Lutein/Zeaxan [Ocuvite Lutein Capsule] 1 each PO DAILY [Last Taken Unknown] metFORMIN HCL [Glucophage] 2.5 tab PO BIDWM 08/24/17 [Last Taken Unknown] Exam - Exam Vital Signs: Vital Signs - Last Taken Temp Pulse 100 08/24/17 16:09 Resp 11 L 08/24/17 16:09 BP 111/52 08/24/17 16:09 Pulse Ox 100 08/24/17 16:09 Constitutional: Present: Obtunded ENT Exam: Present: other - does not respond to name call and questions Eye Exam: bilateral eye: other - constricted 2 mm, sluggish reactive to light Neck: Present: limited range of motion Respiratory: Present: decreased breath sounds, No rales, No wheezing Cardiovascular/Chest: Present: no JVD, no murmur, irregularly irregular Abdomen: Present: Normal bowel sounds, soft, nontender, nondistended Extremity: Present: no pedal edema, no calf tenderness Neurologic: Present: other - obtunded/coma?, no reaction to sternal rub but frowned with pressure on his medial suprorbital ridge, extremeites will fall down limply after raising them and releasing them, DTR hypoactive, positive Babinski Diagnostic Studies: Laboratory Results WBC 8.5 K/mm3 (4.0-10.5) 08/24/17 13:31 RBC 3.87 M/mm3 (4.7-6.0) L 08/24/17 13:31 Hgb 11.5 gm/dL (13.5-18.0) L 08/24/17 13:31 Hct 35.4 % (42.0-52.0) L 08/24/17 13:31 MCV 91.5 fl (78-100) 11/08/17 13:31 MCH 29.7 pg (27-31) 08/24/17 13:31 MCHC 32.5 g/dl (32-36) 08/24/17 13:31 RDW 13.2 % (11.5-14.0) 08/24/17 13:31 Plt Count 184 K/mm3 (150-450) 08/24/17 13:31 MPV 10.4 fl (6.0-9.5) H 08/24/17 13:31 Immature Gran % (Auto) 1.60 % (0.001-0.429) H 08/24/17 13:31 Immature Gran # (Auto) 0.14 K/mm3 (0.000-0.0310) H 08/24/17 13:31 Neutrophils % 66.4 % (42-75.0) 08/24/17 13:31 Lymphocytes % 22.0 % (20-51) 08/24/17 13:31 Monocytes % 7.9 % (0.0-9) 08/24/17 13:31 Eosinophils % 1.5 % (0.0-3.0) 08/24/17 13:31 Basophils % 0.6 % (0.0-1.0) 08/24/17 13:31 Nucleated RBC % 0.0 k/mm3 (0-1) 08/24/17 13:31 Neutrophils # 5.7 K/mm3 (1.3-6.0) 08/24/17 13:31 Lymphocytes # 1.9 k/mm3 (1.5-3.5) 08/24/17 13:31 Monocytes # 0.7 k/mm3 (0.0-1.0) 08/24/17 13:31 Eosinophils # 0.1 k/mm3 (0.0-0.7) 08/24/17 13:31 Absolute Basophils 0.1 k/mm3 (0.0-0.1) 08/24/17 13:31 pCO2 29.5 mmHg (35.0-48.0) L 08/24/17 13:33 pO2 236.2 mmHg (83.0-108.0) H 08/24/17 13:33 HCO3 19.5 mmol/L (21.0-28.0) L 08/24/17 13:33 Total CO2 20.4 mmol/L (19.0-24.0) 08/24/17 13:33 Base Excess -3.9 mmol/L (-2.0-3.0) L 08/24/17 13:33 ABG pH 7.44 (7.35-7.45) 08/24/17 13:33 ABG O2 Sat (Measured) 99.6 % (94.0-98.0) H 08/24/17 13:33 Sodium 137 mmol/L (132-142) 08/24/17 14:08 Plasma Sodium 140 mmol/L (130-142) 08/24/17 14:08 Potassium 4.6 mmol/L (3.4-4.6) 08/24/17 14:08 Chloride 99 mmol/L (97-106) 08/24/17 14:08 Carbon Dioxide 27.6 mmol/L (24-32.6) 08/24/17 14:08 Anion Gap 15.0 mmol/L (6.8-13.8) H 08/24/17 14:08 BUN 20 mg/dL (6-23) 08/24/17 14:08 Creatinine 0.96 mg/dL (0.4-1.4) 08/24/17 14:08 Est GFR (Non-Af Amer) 80 mL/min (60-130) 08/24/17 14:08 BUN/Creatinine Ratio 20.8 (9.0-21.6) 08/24/17 14:08 Random Glucose 287 mg/dL (70-110) H 08/24/17 14:08 Calcium 8.8 mg/dL (7.9-10.9) 08/24/17 14:08 Calcium Adj for Albumin 9.0 mg/dL (8.4-10.2) 08/24/17 14:08 Magnesium 1.6 mg/dL (1.2-2.8) 08/24/17 14:08 Total Bilirubin 0.4 mg/dL (0.0-1.1) 08/24/17 14:08 AST 17 U/L (0-48) 08/24/17 14:08 ALT 13 U/L (19-67) L 08/24/17 14:08 Alkaline Phosphatase 65 U/L (50-170) 08/24/17 14:08 Ammonia Less than 17.0 mcmol/L (11-35) 08/24/17 14:08 Troponin I Less than 0.017 ng/ml (0.00-0.10) 08/24/17 14:08 Total Protein 6.9 gm/dL (6.2-8.2) 08/24/17 14:08 Albumin 3.3 gm/dl (3.4-5.0) L 08/24/17 14:08 Urine Color Yellow 08/24/17 15:06 Urine Appearance Cloudy 08/24/17 15:06 Urine pH 6.5 pH (5.0-7.0) 08/24/17 15:06 Ur Specific Holt 1.010 SP.GR. (1.005-1.030) 08/24/17 15:06 Urine Protein Negative mg/dL (NEGATIVE) 08/24/17 15:06 Urine Glucose (UA) 250 mg/dL (NEGATIVE) H 08/24/17 15:06 Urine Ketones Negative mg/dL (NEGATIVE) 08/24/17 15:06 Urine Blood 5 /ul (NEGATIVE) H 08/24/17 15:06 Urine Nitrate Negative (NEGATIVE) 08/24/17 15:06 Urine Bilirubin Negative mg/dl (NEGATIVE) 08/24/17 15:06 Urine Urobilinogen Normal EU/dl (NORMAL) 08/24/17 15:06 Ur Leukocyte Esterase 500 /ul (NEGATIVE) H 08/24/17 15:06 Urine RBC None seen /hpf (0-5) 08/24/17 15:06 Urine WBC 5-10 /hpf (0-5) H 08/24/17 15:06 Ur Epithelial Cells None seen /hpf (0-5) 08/24/17 15:06 Urine Bacteria 1+ (NONE) H 08/24/17 15:06 Urine Culture Comments Culture to follow 08/24/17 15:06 Serum Ketones Negative (NEGATIVE) 08/24/17 14:08 Assessment/Plan - Assessment/Plan (1) Altered mental status Assessment: Coma/obtundation? will do MRI/EEG in the morning. will add TSH, UA, EKG, CK Will get a neurology consult in the morning if they are here. He is a DNR and comfort care only if clinical status turns for the worst as per son. Rule out structural - CVA ( basilar artery- Lock in Syndrome?) vs Seizure Disorder vs NMS ( withdrawal of Dopamine? but should be mydriasis) vs Toxic/metabolic encephalopathy (UTI) vs Psychogenic Unresponsiveness. No recent opiods ( but with miosis) Problem: Acute Qualifiers: Altered mental status type: coma Coma depth: [place] coma 3-8 Coma timing : unspecified coma timing Qualified Code(s): R40.2430 - [place] coma scale score 3-8, unspecified time (2) A-fib Problem: Chronic Qualifiers: (3) HLD (hyperlipidemia) Problem: Chronic Qualifiers: (4) HTN (hypertension) Problem: Chronic Qualifiers: (5) Parkinsonism Problem: Chronic Qualifiers: (6) Urinary tract infection Assessment: will start him on IV rocephin. Problem: Acute Qualifiers: Urinary tract infection type: acute cystitis Hematuria presence: without hematuria Qualified Code(s): N30.00 - Acute cystitis without hematuria
[2017-08-24 18:13] LABS: TSH * 2.162 uIU/mL (0.358-3.74)
[2017-08-24] MEDS: INSULIN LISPRO 100 UNITS/ML VIAL SC SCH (18:21)
[2017-08-24] MEDS: PANTOPRAZOLE SODIUM 40 MG in NORMAL SALINE 100 ML IV SCH (18:28)
[2017-08-24] MEDS: BIMATOPROST 25 DROP BTL EACHEYE SCH (21:26)
[2017-08-25] MEDS ORDERED: LORazepam 1 MG TABLET PO ONE (08:00)
--- NOTE | 2017-08-25 08:04 | PN ---
Sri Note - Interim Narrative: 08/25/17 08:01 Patient woke up early this morning. He does not recall the events yesterda. He has on and off confusion. Will give him Ativan 1/2-1 hour before his MRI and will do his EEG (in case this long postictal stage from a SDO). if WNL will discharge him to [facility].
[2017-08-25] MEDS: INSULIN LISPRO 100 UNITS/ML VIAL SC SCH ×3 (09:23→17:13)
[2017-08-25] MEDS ORDERED: LORazepam 1 MG TABLET PO PRN (11:14)
[2017-08-25 16:30] LABS: Cocaine Ur Negative (NEGATIVE); Urine Barbiturate Negative (NEGATIVE); Urine Benzodiazepines Negative (NEGATIVE); Urine Opiates Negative (NEGATIVE); Urine PCP Negative (NEGATIVE); Urine THC Negative (NEGATIVE)
--- NOTE | 2017-08-25 17:27 | PN ---
Subjective - Date and Time Seen Date: 08/25/17 Time: 17:24 Subjective Narrative: 08/25/17 08:01 Patient woke up early this morning. He does not recall the events yesterda. He has on and off confusion. Will give him Ativan 1/2-1 hour before his MRI and will do his EEG (in case this long postictal stage from a SDO). if WNL will discharge him to [facility]. ADDENDUM: MRI cancelled . Patient started moving despite Ativan preprocedure. Will repeat one under anestheisa in the morning Objective - Review of Systems Misc: All systems neg except as marked - Unreliable due to confusion - Vitals Vitals: Last Vital Signs Temp 36.9 C 08/25/17 12:40 Pulse 74 08/25/17 12:40 Resp 18 08/25/17 12:40 BP 142/67 08/25/17 12:40 Pulse Ox 97 08/25/17 12:40 - Exam Constitutional: Present: Alert - AAO x 1 ENT Exam: Present: hearing grossly normal Neck: Present: supple Respiratory: Present: decreased breath sounds, No rales, No wheezing Cardiovascular/Chest: Present: regular rate, rhythm, no JVD, no murmur Abdomen: Present: Normal bowel sounds, soft, nontender, nondistended Extremity: Present: no pedal edema, no calf tenderness Assessment/Plan - Problems/Diagnosis (1) Altered mental status Problem: Acute Qualifiers: Altered mental status type: coma Coma depth: [place] coma 3-8 Coma timing : unspecified coma timing Qualified Code(s): R40.2430 - [place] coma scale score 3-8, unspecified time Narrative: Will get MRI in the morning under anesthesia. Will follow up with EEG . neuro was consulted (2) A-fib Problem: Chronic Qualifiers: (3) HLD (hyperlipidemia) Problem: Chronic Qualifiers: (4) HTN (hypertension) Problem: Chronic Qualifiers: (5) Parkinsonism Problem: Chronic Qualifiers: (6) Urinary tract infection Problem: Acute Qualifiers: Urinary tract infection type: acute cystitis Hematuria presence: without hematuria Qualified Code(s): N30.00 - Acute cystitis without hematuria
[2017-08-25] MEDS: PANTOPRAZOLE SODIUM 40 MG in NORMAL SALINE 100 ML IV SCH (19:50)
[2017-08-25] MEDS: BIMATOPROST 25 DROP BTL EACHEYE SCH (21:42)
[2017-08-26] MEDS ORDERED: 0.5 NORMAL SALINE 1,000 ML IV PRN (05:38)
[2017-08-26] MEDS: INSULIN LISPRO 100 UNITS/ML VIAL SC SCH ×2 (07:23→13:45)
--- NOTE | 2017-08-26 08:07 | PN ---
Progess Note - Interim Narrative: 08/26/17 08:06 AAO x 1. Neuro input very much appreciated. Awaitng MRI today and possible dicharge back to [place].
--- NOTE | 2017-08-26 08:28 | DS ---
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 Problem: Acute Qualifiers: Altered mental status type: coma Coma depth: [place] coma 3-8 Coma timing : unspecified coma timing Qualified Code(s): R40.2430 - [place] coma scale score 3-8, unspecified time (2) A-fib Problem: Chronic Qualifiers: (3) HLD (hyperlipidemia) Problem: Chronic Qualifiers: (4) HTN (hypertension) Problem: Chronic Qualifiers: (5) Parkinsonism Problem: Chronic Qualifiers: (6) Urinary tract infection Problem: Acute Qualifiers: Urinary tract infection type: acute cystitis Hematuria presence: without hematuria Qualified Code(s): N30.00 - Acute cystitis without hematuria Description of Stay: Kaushal Davey, is an 81-year-old white male, resident of the [facility] [place], with previous medical history of hyperlipidemia, hypertension, hypothyroidism, Parkinson's disease, atrial fibrillation, who was admitted on because of unresponsiveness. As per his son he was scheduled to bring him to [facility], Urology Department for his urinary incontinence status post suprapubic catheter placement but he was called around 11 in the morning and told that his father was unresponsive. The nursing personnel in [facility] [place] told him that he was fine and ate his breakfast early this morning. Before 11 he was in his recliner, sleeping and they woke him up to give him his medications ( 0xybutinin and carbidopalevopdopa). A little bit later on they tried to wake him up again to dress him up up to go with the son to [facility] but patient was unresponsive even to sternal rub. His pupils were constricted and sluggishly reactive to light as per son. He was then brought to the emergency room where workup were all within normal limits including a head CT scan which showed no acute intracranial process. He remained unresponsive to sternal rub. His vital signs were stable he was then admitted for observation. As per son his requip was decreased from 3 tabs PO qd to 1 tab PO qd, 3-4 weeks ago by Neurology and his sertraline was increased to 50 mg from 25 mg last week. We ordered an MRI but it was cancelled as patient was moving a lot despite Ativan. His EEG was and neurology saw him. Their impression is that his cognitive change is a progression of his Lewy Body dementia and Parkinson's disease with high sensitivity to medication changes . Will await MRI under anesthesia today and discharge patient to [place]. Procedures Performed: none Discharge Disposition: [facility] Disposition: [facility] [place] Condition: Fair Discharge Activity: Activity as tolerated Discharge Diet: General/regular food Additional Patient Instructions (free text): Please make TCM appointment at discharge, if applicable. Thank you! Kimberli @ext: [phone]. Will follow up in the [place]. Prescriptions (Any new or edited meds): glipiZIDE [Glipizide] 10 mg PO BIDWM #30 tablet Sulfamethoxazole/Trimethoprim [Bactrim Ds] 1 tab PO BID 20 Days #20 tab Complete Home Medications List: Complete Home Medication List: Aspirin [Aspirin EC] 81 mg PO DAILY 09/30/15 Carbidopa/Levodopa [Carbidopa-Levo 25-100 mg Odt] 2.5 tab PO 0500 09/30/15 Levothyroxine Sodium [Synthroid] 50 mcg PO DAILY 09/30/15 Lisinopril [Zestril] 20 mg PO DAILY 09/30/15 Docusate Sodium 100 mg PO DAILY 04/18/17 Omeprazole [Prilosec] 20 mg PO DAILY 04/18/17 Sertraline HCl 50 mg PO DAILY 04/18/17 Acetaminophen [Tylenol] 650 mg PO Q6H PRN #60 tablet 04/22/17 Metoprolol Tartrate [Lopressor] 25 mg PO BID #30 tablet 04/22/17 Bimatoprost [Lumigan 0.01% Ophthalmic Solution] 1 drop EACHEYE HS 06/09/17 Calcium Carbonate [Tums] 500 mg PO TID PRN 06/09/17 Clotrimazole/Betamethasone Dip [Clotrimazole-Betamethasone Crm] 15 gm TP BID rOPINIRole HCL [Requip] 0.5 mg PO DAILY 06/09/17 Oxybutynin Chloride [Ditropan] 5 mg PO TID 06/10/17 Carbidopa/Levodopa [Carbidopa-Levodopa 25-100 Tab] 2 each PO 1000 07/05/17 Carbidopa/Levodopa [Carbidopa-Levodopa 25-100 Tab] 2 each PO 1500 07/05/17 Carbidopa/Levodopa [Carbidopa-Levodopa 25-100 Tab] 2 each PO 189907/05/17 Carbidopa/Levodopa [Carbidopa-Levodopa 25-100 Tab] 2 each PO 219907/05/17 Vit C/E/Zn/Coppr/Lutein/Zeaxan [Ocuvite Lutein & Zeaxanthin Cp] 1 each PO DAILY 08/24/17 metFORMIN HCL [Glucophage] 2.5 tab PO BIDWM 08/24/17 Sulfamethoxazole/Trimethoprim [Bactrim Ds] 1 tab PO BID 20 Days #20 tab glipiZIDE [Glipizide] 10 mg PO BIDWM #30 tablet 08/26/17
[2017-08-26 12:35] VITALS: BP 143/71
== END 2017-08-26 14:32 ==
LOC: ER 13:19 → MS 15:33
PROVIDERS: ADMIT Internal Medicine; ATTEND Internal Medicine
DX: G31.83 Neurocognitive disorder with Lewy bodies (principal); F02.80 Dementia in other diseases classified elsewhere, unspecified severity, without behavioral disturbance, psychotic disturbance, mood disturbance, and anxiety; G20 Parkinson's disease; N39.0 Urinary tract infection, site not specified; B95.62 Methicillin resistant Staphylococcus aureus infection as the cause of diseases classified elsewhere; E11.8 Type 2 diabetes mellitus with unspecified complications; I10 Essential (primary) hypertension; I48.2 Chronic atrial fibrillation; E03.9 Hypothyroidism, unspecified; E78.5 Hyperlipidemia, unspecified
CPT/HCPCS: 36415; 36600; 70450; 70551; 71010; 80053; 80307; 81001; 82009; 82140; 82550; 82803; 83735; 84443; 84484; 85025; 87081; 87086; 93005; 94762; 95813; 96365; 96366; 96367; 96372; 99285; G0378

== ENCOUNTER 2019-04-23 02:36 | Inpatient (IN) ==
[2019-04-23] MEDS ORDERED: NORMAL SALINE 1,000 ML IV ONE (02:44)
--- NOTE | 2019-04-23 02:53 | ERNOTE ---
Medical Problem HPI - Narrative Date of Service: 04/23/19 - General Time Seen by Provider: 04/23/19 02:41 Source: RN notes reviewed, long term records, old records Exam Limitations: dementia - Immun/Allergies/Home Medications Immunizations: IMMUNIZATION HX Immunizations Up to Date Yes History of Influenza Vaccine Yes Hx Pneumococcal Vaccination Yes Allergies/Adverse Reactions: Allergies No Known Allergies Allergy (Verified 04/23/19 03:35) - History of Present History Narrative: 83[facility] Patient unable to give any information. I contacted the nursing staff was taking care of him there and get the following information. The patient normally is a little more interactive than he is right now. He will drink and usually drinks without any difficulty. He will occasionally talk. Patient had an episode of vomiting earlier today around 9:00. This evening his blood pressure shot up to 220 systolic and his respiratory rate went up to 30. He was noted to have a temperature which was low at 94. The staff says they could tell he just was not feeling good so they called the ambulance to bring him to the hospital. His catheter has been dirty at least since this morning. Staff available bar was not working over the weekend so were not sure how long it has been like that. He said usually he will drink but has not been wanting to drink for the last couple of days. Review of Systems - Narrative Narrative: Unable to obtain review of systems secondary to patient condition Medical History (Updated 02/27/19 @ 19:56 by Arnulfo Costello MD) Atrial fibrillation Onset Date: Unknown BPH without urinary obstruction Onset Date: Unknown Balanitis Onset Date: Unknown chronic recurrent Coronary artery disease Onset Date: Unknown Diabetes Onset Date: Unknown NIDDM Erectile dysfunction Onset Date: Unknown Hyperlipidemia Onset Date: Unknown Hypertension Onset Date: Unknown Hypothyroidism Onset Date: Unknown Parkinsonism Onset Date: Unknown Restless leg syndrome Onset Date: Unknown Urinary incontinence Onset Date: Unknown Surgical History: Surgical History (Updated 04/20/18 @ 15:35 by Gifty Rose RN) 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 History of colonoscopy Onset Date: Unknown Family History: Family History (Updated 04/20/18 @ 15:38 by Gifty Rose RN) Brother Pacemaker Myocardial infarction, Onset Age: 50 Father Pulmonary embolism Bleeding ulcer Mother age 92 Social History: Preferred Language [place] Smoking Status Former smoker Abuse History No History of abuse Psych History No pertinent hx (Last Reviewed 04/03/19 @ 13:39 by RAKEL Guevara) No Social History Section defined Physical Exam - Physical Exam General Appearance: Present: wd/wn, alert, no apparent distress Head Exam: Present: normal inspection, no evidence of injury Eye Exam: Other: bilateral Ears, Nose, Throat: Present: other - Patient was some drainage from bilateral eyes mucous membranes are extremely dry Neck: Present: normal inspection Respiratory: Present: other - Patient is tachypneic. I do not hear any wheezing. Limited exam Cardiovascular/Chest: Present: other - Patient is tachycardic around 110. I do not hear any murmurs Gastrointestinal/Abdominal: Present: other - Abdomen is soft nondistended. He moans with touching him anywhere, including the abdomen. No guarding or rebound Male Genitals Exam: Present: other - Patient has a catheter through the penis. There is significant sediment and discoloration, it is nearly brown Back Exam: Present: normal inspection Extremity Exam: Present: normal inspection, no edema Neurological Exam: Present: other - Patient moans. Does not really withdraw to pain. Eyes will not open. Skin Exam: Present: normal color, warm/dry Lymphatic Exam: Present: no adenopathy Progress - Results and Orders Patient's Lab Results:: I have reviewed the patient's lab results. - Vital Signs Patient's Vital Signs:: I have reviewed the patient's vital signs. Plan - Plan Plan: The patient's daughter and son are both here. They have described to me someone who is very active in life and never wanted to be in a long term. He is been in a facility for at least 3 years. He has a chronic indwelling [place] and has had repeated infections. They say they have noticed a significant decline in his mental state and functioning over the last few months. I related to them that the patient seems to have an overwhelming infection as evidenced by the elevated white blood cell count, decreased temperature, decreased blood pressure. They do not want any pressors or heroic measures. No CPR or di alysis. I talked to them about whether he should start antibiotics and if they are of the opinion that starting antibiotics will only prolong the dying process and will not add to his quality of life. I am in agreement. We are making the patient comfort measures only. The patient will be admitted to the hospital and allowed to pass. Because we are no longer doing treatment I have stopped doing the EKG and stopped the x-ray. We will not do any blood tests such as Accu-Chek. We will have the IV access available to give morphine if he gets into respiratory distress. Departure Clinical Impression: Septic shock - Departure Disposition: Still a patient Condition: Critical
[2019-04-23 03:12] LABS: Hematocrit 42.9 % (42.0-52.0); Hemoglobin 12.1 gm/dL (13.5-18.0); Mean Cell Volume 99.8 fl (78-100); Mean Corpuscular Hemoglobin 28.1 pg (27-31); Mean Corpuscular Hgb Conc 28.2 g/dl (32-36); Mean Platelet Volume 10.6 fl (8-11.3); Platelet Count 329 K/mm3 (150-450); Red Cell Distribution Width 16.6 % (11.5-14.0); White Blood Count 34.8 K/mm3 (4.0-10.5)
[2019-04-23 03:27] LABS: Total Cells Counted 100
[2019-04-23 03:32] LABS: Albumin * 3.1 gm/dl (3.4-5.0); Anion Gap 43.3 mmol/L (6.8-13.8); BUN/Creatinine Ratio 11.8 (9.0-21.6); Bilirubin, Total 0.9 mg/dL (0.0-1.1); Ca. Corrected For Albumin 9.7 mg/dL (8.4-10.2); Calcium * 9.3 mg/dL (7.9-10.9); Carbon Dioxide 7.2 mmol/L (24-32.6); Potassium 5.5 mmol/L (3.4-4.6); Total Protein 7.1 gm/dL (6.2-8.2)
[2019-04-23 03:33] LABS: Troponin I 0.018 ng/mL (0.00-0.10)
[2019-04-23 03:33] LABS: Urine Bilirubin 3 mg/dl (NEGATIVE); Urine Blood 250 /ul (NEGATIVE); Urine Ketone 5 mg/dL (NEGATIVE); Urine Protein >=300 mg/dL (NEGATIVE); Urine Urobilinogen Normal (NORMAL)
[2019-04-23 03:46] LABS: Urine Nitrite Positive (NEGATIVE)
[2019-04-23 03:47] LABS: Urine Appearance Turbid (CLEAR); Urine Bacteria 4+; Urine Color Amber; Urine Hyaline Cast 0-5 /LPF; Urine RBC 25-50 /hpf (0-5); Urine Triple Phosphate Crystal Few - 1+ /hpf; Urine WBC 25-50 /hpf (0-5)
[2019-04-23] MEDS ORDERED: MORPHINE SULFATE 4 MG/ML SYRG IV PRN (03:54)
[2019-04-23 03:56] LABS: Band 9 % (0-2.0); Immature Granulocyte 1 (0-1); Lymphocyte 13 % (20-51); Monocyte 7 % (0-9); Neutrophil 70 % (42-75); Neutrophil # 24.4 K/mm3 (1.3-6.0)
[2019-04-23 03:57] LABS: Anisocytosis 1+; Platelet Estimate Normal (NORMAL)
[2019-04-23 04:06] LABS: RBC Morphology Normal (NORMAL)
[2019-04-23 06:27] VITALS: BP 0/0
[2019-04-23] MEDS ORDERED: MORPHINE SULFATE 2 MG/ML DISP.SYRIN IV PRN (06:37)
--- NOTE | 2019-04-23 18:31 | DS ---
Discharge Summary - Provider Primary Care Provider: Delaney Robledo Admitting Clinician: Willie Arboleda Attending Physician on Admission: Willie Arboleda Pronouncing Clinician: Hamzah Abraham - Date and Time Date of : 04/23/19 Time of : 04:35 - Summary Details (narrative): Unknown, was not present at time of and he has left the ER minutes prior to passing. He was septic and very ill from a urinary tract infection though which lead to the family placing him on comfort care measures only. Procedures Performed: none - Additional Data Confirmation of as documented by pronouncing clinician: other - unknown Family: not available Practitioner(Attending/PCP) notified: No Was code activated: No Autopsy requested: No E Business Specialist notified: No [employer] notified: No Advance Directives: No
== END 2019-04-23 04:35 | disposition expired | DRG 698 ==
LOC: ER 02:36 → MS 03:42
PROVIDERS: ADMIT Family Medicine; ATTEND Internal Medicine
CPT/HCPCS: 36415; 80053; 81001; 83605; 84484; 85025; 87040; 87077; 87086; 87186; 96360; 96361; 99285